=== PATIENT | female | born 1985 | race Caucasian/White ===

== ENCOUNTER 2016-03-17 11:58 | Emergency (ER) | payer OTHER ==
[~2016-03-17] VITALS: Wt 92.0 kg
[~2016-03-17 11:58] MED LIST: AMO500 PO; DEPO-PROVERA IM; IBUP-725; MED4DP PO; NAPR-260 PO; PRED50TA PO
[2016-03-17] MEDS ORDERED: IPRATROPIUM (NEB) 0.5 MG/2.5 ML AMP NEB STA (13:56)
[2016-03-17] MEDS ORDERED: ALBUTEROL 0.5% (NEB) 2.5 MG/0.5 ML AMP NEB STA (13:56)
--- NOTE | 2016-03-17 14:29 | RADRPT ---
PROCEDURE: XR Chest. CLINICAL INDICATION: chest pain, cough TECHNIQUE: Single frontal view of the chest was obtained COMPARISON: None FINDINGS: The heart and mediastinum are within normal limits. The lungs are clear. There is no pleural effusion or pneumothorax. RPTAT: AA IMPRESSION: No acute disease. .Michele Polanco MD, MD Date Time Electronically viewed and signed by .Michele Polanco MD, on 03/17/2016 14:28 .S/
[2016-03-17] MEDS ORDERED: BENZ100C70 PO (15:23)
[2016-03-17] MEDS ORDERED: ALBU8.5H3 INH (15:23)
--- NOTE | 2016-03-17 17:52 | ERD ---
ER Documentation Chief Complaint Date/Time DATE: 03/17/16 TIME: 17:49 Chief Complaint COUGH, CONGESTION, FEVER AT HOME HPI 31-year-old female with a past medical history of asthma presents the ED complaining of a cough that started 2 weeks ago. States that she started to have a productive cough yesterday. Reports that her left ear hurt. States that she has body aches. States that she's been taking Tylenol, Advil, Robitussin with slight relief. States that she feels congested and slightly short of breath. Denies any fever, chills, chest pain, pleuritic chest pain, dyspnea on exertion, abdominal pain, nausea, vomiting. ROS All systems reviewed and are negative except as per history of present illness. Medications Home Meds Active Scripts Albuterol Sulfate* (Proair HFA*) 8.5 Gm Hfa.aer.ad, 2 PUFF INH Q4, #1 INHALER Prov:JANNETTE HONG PA-C 03/17/16 Benzonatate* (Tessalon Perle*) 100 Mg Capsule, 100 MG PO Q8H Y for COUGH, #20 CAP Prov:JANNETTE HONG PA-C 03/17/16 Methylprednisolone* (Medrol* DOSE PACK) 4 Mg/Dose-Pack Tab.ds.pk, 4 MG PO . DIRECTED, #1 PACKET Prov:ROSE BALL PA-C 04/10/15 Naproxen* (Naprosyn*) 500 Mg Tablet, 500 MG PO BID Y for PAIN AND/OR INFLAMMATION, #30 TAB Prov:ROSE BALL PA-C 04/10/15 Prednisone* (Prednisone*) 50 Mg Tablet, 50 MG PO DAILY, #5 TAB Prov:NICANOR CHAIDEZ PA-C 02/22/15 Amoxicillin* (Amoxicillin*) 500 Mg Cap, 500 MG PO BID for 7 Days, CAP Prov:NICANOR CHAIDEZ PA-C 02/22/15 Reported Medications [Depo-Provera] No Conflict Check, IM Q3 MONTHS 08/10/12 Ibuprofen (Motrin) 400 Mg Tablet 05/08/11 [None] No Conflict Check 04/20/09 Allergies Allergies: Coded Allergies: No Known Allergies (Verified Allergy, Mild, 04/10/15) PMhx/Soc History of Surgery: No Anesthesia Reaction: No Hx Neurological Disorder: No Hx Respiratory Disorders: No Hx Cardiac Disorders: No Hx Psychiatric Problems: No Hx Miscellaneous Medical Probl: No Hx Alcohol Use: No Hx Substance Use: No Hx Tobacco Use: No Smoking Status: Never smoker Physical Exam Vitals Vital Signs Date Time Temp Pulse Resp B/P Pulse Ox O2 Delivery O2 Flow Rate FiO2 03/17/16 14:18 64 18 97 21 03/17/16 12:11 97.6 69 17 121/68 99 Physical Exam Const: Top-goy-skvciukhs, well-nourished. In no acute distress. Head: Atraumatic, normocephalic Eyes: Normal Conjunctiva without injection. No purulent discharge. PERRL. EOMI ENT: Normal external ear. Ear canal without erythema. Tympanic membrane pearly negro without effusion or bulging. Nasal canal clear with normal turbinates. Moist oropharynx without tonsillar exudates. Non-erythematous pharynx. Uvula midline. No drooling. No trismus. Neck: Full range of motion. No meningismus. No cervical lymphadenopathy. Resp: Clear to auscultation bilaterally. No wheezing, rhonchi, rales, or crackles. No accessory muscle use. No retractions. Cardio: Regular rate and rhythm. No murmurs, rubs or gallops. Abd: Soft, non tender, non distended. Normal bowel sounds. No palpable masses. No rebound tenderness. No guarding. Skin: No petechiae or rashes Back: No midline tenderness. No CVA tenderness. Ext: No cyanosis, or edema. Neur: Awake and alert. Psych: Normal Mood and Affect Results 24 hrs Current Medications Medications (Trade) Dose Ordered Sig/Marvel Route PRN Reason Start Time Stop Time Status Last Admin Dose Admin Albuterol (Proventil 0.5% (Neb)) 10 mg ONCE STAT NEB 03/17/16 13:56 03/17/16 13:58 DC 03/17/16 14:13 Ipratropium [place] (Atrovent 0.02% (Neb)) 1 mg ONCE STAT NEB 03/17/16 13:56 03/17/16 13:58 DC 03/17/16 14:14 Procedures/MDM This is a 31-year-old female with no significant past medical history presents the ED complaining of cough for the last 2 weeks. Patient is afebrile and nontoxic-appearing. Patient was giving a breathing treatment consisting of albuterol 10 mg, 1 mg Atrovent with improvement of her shortness of breath. There is no wheezing noted. No indication for steroids at this time. A chest x- ray was ordered to further evaluate patient. PROCEDURE: XR Chest. CLINICAL INDICATION: chest pain, cough TECHNIQUE: Single frontal view of the chest was obtained COMPARISON: None FINDINGS: The heart and mediastinum are within normal limits. The lungs are clear. There is no pleural effusion or pneumothorax. RPTAT: AA IMPRESSION: No acute disease. This patient presents to the ED with symptoms consistent with a viral acute upper respiratory infection. Patient is afebrile and has normal vital signs. Patient's physical exam include lungs which were clear to auscultation and a normal pulse oximetry. There is a low suspicion for pneumonia, pneumothorax, pulmonary embolism, epiglottitis, otitis media, otitis externa, viral/strep pharyngitis, sinusitis, peritonsillar abscess, mastoiditis, retropharyngeal abscess, meningitis, sepsis, acute abdomen or other emergent conditions. Fluids , rest, and symptomatic treatment are recommended for the management of patient' s symptoms. Discharge medications: Pro-air, Tessalon Perles Patient was instructed to return to the ED for any new or worsening symptoms. They should otherwise follow up with the primary care provider within 1-2 days. The patient's questions were answered at the time of discharge. Patient understood and agreed with discharge management. Departure Diagnosis: Primary Impression: Upper respiratory infection Condition: Stable Patient Instructions: Asthma, Acute (Adult), Uri, Viral, No Abx (Adult) Referrals: [facility] YOU HAVE RECEIVED A MEDICAL SCREENING EXAM AND THE RESULTS INDICATE THAT YOU DO NOT HAVE A CONDITION THAT REQUIRES URGENT TREATMENT IN THE EMERGENCY DEPARTMENT. FURTHER EVALUATION AND TREATMENT OF YOUR CONDITION CAN WAIT UNTIL YOU ARE SEEN IN YOUR DOCTORS OFFICE WITHIN THE NEXT 1-2 DAYS. IT IS YOUR RESPONSIBILITY TO MAKE AN APPOINTMENT FOR FOLOW-UP CARE. IF YOU HAVE A PRIMARY DOCTOR --you should call your primary doctor and schedule an appointment IF YOU DO NOT HAVE A PRIMARY DOCTOR YOU CAN CALL OUR PHYSICIAN REFERRAL HOTLINE AT IF YOU CAN NOT AFFORD TO SEE A PHYSICIAN YOU CAN CHOSE FROM THE FOLLOWING [facility] [address] [facility]. [facility] [address] [email or web address] [address] [facility] [address] [facility] [address] [facility]. [facility] [address] [facility]. [facility] YOU HAVE RECEIVED A MEDICAL SCREENING EXAM AND THE RESULTS INDICATE THAT YOU DO NOT HAVE A CONDITION THAT REQUIRES URGENT TREATMENT IN THE EMERGENCY DEPARTMENT. FURTHER EVALUATION AND TREATMENT OF YOUR CONDITION CAN WAIT UNTIL YOU ARE SEEN IN YOUR DOCTORS OFFICE WITHIN THE NEXT 1-2 DAYS. IT IS YOUR RESPONSIBILITY TO MAKE AN APPOINTMENT FOR FOLOW-UP CARE. IF YOU HAVE A PRIMARY DOCTOR --you should call your primary doctor and schedule and appointment IF YOU DO NOT HAVE A PRIMARY DOCTOR YOU CAN CALL OUR PHYSICIAN REFERRAL HOTLINE AT . IF YOU CAN NOT AFFORD TO SEE A PHYSICIAN YOU CAN CHOSE FROM THE FOLLOWING [facility]: [facility] [address] [place] [address] [facility] [address] [place] [address] [facility] [address] [place] [address] [facility] Additional Instructions: FOLLOW UP WITH YOUR PRIMARY CARE PHYSICIAN TOMORROW. Return to this facility if you are not improving as expected. JANNETTE HONG PA-C Mar 17, 2016 17:52
== END 2016-03-17 15:44 | disposition home or self-care (01) ==
LOC: FTE 11:58
DX: J06.9 Acute upper respiratory infection, unspecified (principal)
CPT/HCPCS: 71010; 94644; Z7502; Z7610

== ENCOUNTER 2016-06-13 18:10 | Emergency (ER) | payer OTHER ==
[~2016-06-13] VITALS: Ht 160 cm; Wt 89.0 kg
[~2016-06-13 18:10] MED LIST changes: +ALBU8.5H3 INH; +BENZ100C70 PO
[2016-06-13 18:12] VITALS: Ht 160 cm; Wt 89.0 kg
[2016-06-13] MEDS ORDERED: ONDANSETRON 4 MG INJ IM STA (19:42)
[2016-06-13] MEDS ORDERED: LORA-441 PO (19:43)
[2016-06-13] MEDS ORDERED: LORAZEPAM 0.5 MG TAB PO ONE (20:00)
--- NOTE | 2016-06-13 20:28 | ERD ---
ER Documentation Chief Complaint Date/Time DATE: 06/13/16 TIME: 20:26 Chief Complaint vomiting,feeling dizzy,light headed, onset last night, feels anxious HPI 31-year-old woman with multiple complaints including dizziness paresthesias to the hands and feet, feeling dizzy and lightheaded with nausea. Symptoms have been intermittent for 2 days, she states she has had multiple similar episodes in the past and has a history of anxiety although is not using any medications for her symptoms. She denies drug abuse. She denies depression, suicidal or homicidal ideation. She denies fevers or chills, no chest pain, no shortness of breath, no vomiting or diarrhea. ROS All systems reviewed and are negative except as per history of present illness. Medications Home Meds Active Scripts Lorazepam* (Ativan*) 0.5 Mg Tablet, 0.5 MG PO Q8H Y for ANXIETY, #12 TAB Prov:WOLFGANG WOODRUFF MD 06/13/16 Albuterol Sulfate* (Proair HFA*) 8.5 Gm Hfa.aer.ad, 2 PUFF INH Q4, #1 INHALER Prov:JANNETTE HONG PA-C 03/17/16 Benzonatate* (Tessalon Perle*) 100 Mg Capsule, 100 MG PO Q8H Y for COUGH, #20 CAP Prov:JANNETTE HONG PA-C 03/17/16 Methylprednisolone* (Medrol* DOSE PACK) 4 Mg/Dose-Pack Tab.ds.pk, 4 MG PO . DIRECTED, #1 PACKET Prov:ROSE BALL PA-C 04/10/15 Naproxen* (Naprosyn*) 500 Mg Tablet, 500 MG PO BID Y for PAIN AND/OR INFLAMMATION, #30 TAB Prov:ROSE BALL PA-C 04/10/15 Prednisone* (Prednisone*) 50 Mg Tablet, 50 MG PO DAILY, #5 TAB Prov:NICANOR CHAIDEZ PA-C 02/22/15 Amoxicillin* (Amoxicillin*) 500 Mg Cap, 500 MG PO BID for 7 Days, CAP Prov:NICANOR CHAIDEZ PA-C 02/22/15 Reported Medications [Depo-Provera] No Conflict Check, IM Q3 MONTHS 08/10/12 Ibuprofen (Motrin) 400 Mg Tablet 05/08/11 [None] No Conflict Check 04/20/09 Allergies Allergies: Coded Allergies: No Known Allergies (Verified Allergy, Mild, 06/13/16) PMhx/Soc Anxiety History of Surgery: No Anesthesia Reaction: No Hx Neurological Disorder: No Hx Respiratory Disorders: No Hx Cardiac Disorders: No Hx Psychiatric Problems: No Hx Miscellaneous Medical Probl: No Hx Alcohol Use: No Hx Substance Use: No Hx Tobacco Use: No Smoking Status: Never smoker FmHx Family History: No diabetes Physical Exam Vitals Vital Signs Date Time Temp Pulse Resp B/P Pulse Ox O2 Delivery O2 Flow Rate FiO2 06/13/16 18:12 97.9 87 20 128/78 99 Physical Exam GENERAL: Well-developed, well-nourished, anxious HEENT: Moist mucous membranes, pink conjunctiva, no cervical spine tenderness or step-off deformities, no goiter, no jaundice or icterus, extraocular movements intact without pain. No submandibular induration, and no pharyngeal erythema NEURO: Alert and oriented 3, cranial nerves II through XII intact bilaterally, pupils equal round reactive to light, no focal deficits or facial asymmetry, sensation intact distally Strength 5/5 in upper and lower extremities bilaterally CARDIAC: Regular rate and rhythm, no murmurs rubs or gallops LUNGS: Clear bilaterally no wheezing crackles or stridor ABDOMEN: Soft nontender, no guarding, no rigidity, no rebound, no psoas sign no obturator sign. Normoactive bowel sounds SKIN: Warm and dry to touch, no abrasions, contusions, or hematomas, no lacerations, no ecchymosis, no target lesions, and without ulcers EXTREMITIES: No clubbing cyanosis or edema, calves are bilaterally symmetrical, no Homans sign, no popliteal cord sign. Distal pulses equal and bilateral PSYCH: Anxious Results 24 hrs Current Medications Medications (Trade) Dose Ordered Sig/Marvel Route PRN Reason Start Time Stop Time Status Last Admin Dose Admin Ondansetron HCl (Zofran Inj) 4 mg ONCE STAT IM 06/13/16 19:42 06/13/16 19:43 DC 06/13/16 19:55 Lorazepam (Ativan) 0.5 mg ONCE ONCE PO 06/13/16 20:00 06/13/16 20:01 DC 06/13/16 19:54 Procedures/MDM Patient did have nausea here in the ER but no episodes of vomiting I administered Zofran 4 mg intramuscular injection and for anxiety administer lorazepam 0.5 mg p.o. with good effect. Reassurance was provided to the patient, her vital signs are normal and she can be managed as an outpatient. Differential diagnoses considered, included but not limited to acute coronary syndrome, pulmonary embolism, aortic dissection, abdominal aortic aneurysm, sepsis, stroke, meningitis, encephalitis, pneumonia, appendicitis, cholecystitis , bowel obstruction, pyelonephritis, nephrolithiasis, cystitis, as well as metabolic, hematologic, and electrolyte abnormalities. As well as abscess, cellulitis, fractures, and dislocations. Patient feels much better at this time, and vital signs are normal, symptoms have improved. I did give strict instructions to return to the ED if symptoms continue or worsen, patient will otherwise follow-up with primary care physician. Patient understood instructions and agreed to plan. Departure Diagnosis: Primary Impression: Anxiety attack Condition: Good Patient Instructions: Anxiety Reaction Referrals: SOFYA DO MD (PCP) WOLFGANG WOODRUFF MD Jun 13, 2016 20:28
== END 2016-06-13 20:08 | disposition home or self-care (01) ==
LOC: FTE 18:10
DX: F41.9 Anxiety disorder, unspecified (principal); R11.0 Nausea
CPT/HCPCS: 96372; J2405; Z7502; Z7610

== ENCOUNTER 2016-07-03 05:09 | Emergency (ER) | payer OTHER ==
[~2016-07-03] VITALS: Ht 162.6 cm; Wt 94.0 kg
[~2016-07-03 05:09] MED LIST changes: +LORA-441 PO
[2016-07-03 05:12] VITALS: Ht 162.6 cm; Wt 94.0 kg
[2016-07-03] MEDS ORDERED: LORA1TAB PO (06:51)
--- NOTE | 2016-07-03 06:56 | ERD ---
ER Documentation Chief Complaint Date/Time DATE: 07/03/16 TIME: 06:53 Chief Complaint anxiety, run out of ativan since 2 days ago HPI 31-year-old female who presents the emergency room with anxiety. The patient states that she recently ran out of Ativan that is usually prescribed in the emergency department. The patient describes anxiety that is chronic, unchanged. She occasionally has depressions and has occasionally in the past thought of suicide but does not have suicidal ideation currently. Patient states that she is just overwhelmed by her job. The patient denies any drug or alcohol abuse. No fevers or chills chest pain or shortness of breath. She is asking for refill of Ativan. ROS All systems reviewed and are negative except as per history of present illness. Medications Home Meds Active Scripts Lorazepam* (Lorazepam*) 1 Mg Tablet, 1 MG PO Q8H Y for ANXIETY, #8 TAB Prov:ARGELIA TOPETE MD 07/03/16 Lorazepam* (Ativan*) 0.5 Mg Tablet, 0.5 MG PO Q8H Y for ANXIETY, #12 TAB Prov:WOLFGANG WOODRUFF MD 06/13/16 Albuterol Sulfate* (Proair HFA*) 8.5 Gm Hfa.aer.ad, 2 PUFF INH Q4, #1 INHALER Prov:JANNETTE HONG PA-C 03/17/16 Benzonatate* (Tessalon Perle*) 100 Mg Capsule, 100 MG PO Q8H Y for COUGH, #20 CAP Prov:JANNETTE HONG PA-C 03/17/16 Methylprednisolone* (Medrol* DOSE PACK) 4 Mg/Dose-Pack Tab.ds.pk, 4 MG PO . DIRECTED, #1 PACKET Prov:ROSE BALL PA-C 04/10/15 Naproxen* (Naprosyn*) 500 Mg Tablet, 500 MG PO BID Y for PAIN AND/OR INFLAMMATION, #30 TAB Prov:ROSE BALL PA-C 04/10/15 Prednisone* (Prednisone*) 50 Mg Tablet, 50 MG PO DAILY, #5 TAB Prov:NICANOR CHAIDEZ PA-C 02/22/15 Amoxicillin* (Amoxicillin*) 500 Mg Cap, 500 MG PO BID for 7 Days, CAP Prov:NICANOR CHAIDEZ PA-C 02/22/15 Reported Medications [Depo-Provera] No Conflict Check, IM Q3 MONTHS 08/10/12 Ibuprofen (Motrin) 400 Mg Tablet 05/08/11 [None] No Conflict Check 04/20/09 Allergies Allergies: Coded Allergies: No Known Allergies (Verified Allergy, Mild, 06/13/16) PMhx/Soc Medical and Surgical Hx: pt denies Medical Hx History of Surgery: No Anesthesia Reaction: No Hx Neurological Disorder: No Hx Respiratory Disorders: No Hx Cardiac Disorders: No Hx Psychiatric Problems: No Hx Miscellaneous Medical Probl: No Hx Alcohol Use: No Hx Substance Use: No Hx Tobacco Use: No FmHx Family History: No diabetes Physical Exam Vitals Vital Signs Date Time Temp Pulse Resp B/P Pulse Ox O2 Delivery O2 Flow Rate FiO2 07/03/16 05:12 98.3 66 20 110/59 100 Physical Exam General: Well developed, well nourished, no acute distress Head: Normocephalic, atraumatic. Eyes: EOM intact ENT: Moist mucous membranes Neck: Full ROM Respiratory: No respiratory distress Cardiovascular: Good capillary refil Abdominal: Nondistended : Deferred MSK: No edema, no unilateral swelling, 5/5 strength Neurologic: Alert and oriented, moving all extremities, normal speech, steady gait Skin: No rash Psych: Anxious, slightly depressed mood, no suicidal ideation Procedures/MDM The patient exhibits signs and symptoms consistent with generalized anxiety disorder versus early major depressive disorder. The patient has expressed suicidal thoughts in the past but does not actively have suicidal thoughts. We had this conversation for period of time and the patient is not actively suicidal. The patient does not have weapons at home and has not tried to hurt herself in the past. She does not use drugs or alcohol. I offered a psychiatry evaluation here in the emergency room with the patient refused. I discussed that she needs to see a psychiatrist and that benzodiazepines are not the only answer for her anxiety and likely depression. The patient needs to see a psychiatrist. I have provided the patient with referral information to psychiatrist. The patient also has a primary care physician. I advised following up with primary care physician within 1 week for referral to psychiatrist. She was also offered return to the emergency room for any suicidal thoughts. The patient verbalizes understanding. At this time, my opinion the patient is not a danger to herself or others. The patient can be safely discharged home with a small prescription for Ativan. We discussed follow up with the patient's primary care doctor within 24 to 48 hours as needed. We also discussed return to the emergency room for worsening symptoms or worsening condition. Outpatient referral: Psychiatry Discharge Medications: Ativan 1 mg a total of 8 tablets Departure Diagnosis: Primary Impression: Anxiety disorder Anxiety disorder type: generalized anxiety disorder Qualified Code: F41.1 - Generalized anxiety disorder Condition: Stable Patient Instructions: Anxiety Reaction Additional Instructions: Call your primary care doctor TOMORROW for an appointment during the next 1 WEEK.Tell the attendance secretary that you were referred from this facility.See the doctor sooner or return here if your condition worsens before your appointment time. You need to be referred to a psychiatrist by your PMD. Return for any suicidal thoughts. ARGELIA TOPETE MD Jul 03, 2016 06:56
== END 2016-07-03 07:23 | disposition home or self-care (01) ==
LOC: FTE 05:09
DX: F41.1 Generalized anxiety disorder (principal)
CPT/HCPCS: 99283

== ENCOUNTER 2016-07-26 14:55 | Emergency (ER) | payer OTHER ==
[~2016-07-26] VITALS: Ht 167.6 cm; Wt 95.5 kg
[~2016-07-26 14:55] MED LIST changes: +LORA1TAB PO
[2016-07-26 14:57] VITALS: Ht 167.6 cm; Wt 95.5 kg
[2016-07-26] MEDS ORDERED: ACETAMINOPHEN 325 MG TAB PO STA (15:53)
[2016-07-26] MEDS ORDERED: SOD CHLORIDE 0.9% 1,000 ML IV STA (15:53)
--- NOTE | 2016-07-26 16:23 | RADRPT ---
PROCEDURE: US OB. CLINICAL INDICATION: Vaginal bleeding. TECHNIQUE: Transabdominal and transvaginal imaging of the uterus was performed. COMPARISON: None. FINDINGS: A single intrauterine is present with identification of a gestational sac, pole, and yolk sac. [place] rump length measures 3.7 cm, corresponding to a gestational age of 10 weeks 4 days. Real time examination shows cardiac activity. The heart rate is 163 beats per minute. Right ovary is not well visualized. There is a 3.2 cm left ovarian cyst. IMPRESSION: 1. Single viable intrauterine gestation of approximately 10 weeks 4 days. 2. Examination is within normal limits. RPTAT: EE .Erasmo Dominguez MD, MD Date Time Electronically viewed and signed by .Erasmo Dominguez MD, on 07/26/2016 16:27 .C/
[2016-07-26 16:39] LABS: ADD UMIC YES; URINE BILIRUBIN (Dip) NEGATIVE (NEGATIVE); URINE BLOOD (Dip) NEGATIVE (NEGATIVE); URINE COLOR YELLOW (YELLOW); URINE GLUCOSE (Dip) NEGATIVE (NEGATIVE); URINE KETONES (Dip) NEGATIVE (NEGATIVE); URINE LEUKOCYTE ESTERASE (Dip) 1+ (NEGATIVE); URINE NITRITE (Dip) NEGATIVE (NEGATIVE); URINE TOTAL PROTEIN (Dip) NEGATIVE (NEGATIVE); URINE UROBILINOGEN (Dip) 1.0 E.U./dL (0.1-1.0)
[2016-07-26 16:40] LABS: ADD SCAN DIFF NO
[2016-07-26 16:45] LABS: BASOPHILS % 0.2 % (0.0-2.0); EOSINOPHILS # 0.1 10^3/ul (0.0-0.5); EOSINOPHILS % 1.6 % (0.0-7.0); HEMATOCRIT 40.9 % (37.0-47.0); HEMOGLOBIN 13.5 g/dl (12.0-16.0); LYMPHOCYTES # 1.6 10^3/ul (0.8-2.9); LYMPHOCYTES % 18.1 % (15.0-51.0); MEAN CORPUSCULAR HEMOGLOBIN 29.3 pg (29.0-33.0); MEAN CORPUSCULAR VOLUME 88.9 fl (82.0-101.0); MEAN PLATELET VOLUME 10.3 fl (7.4-10.4); MONOCYTE # 0.7 10^3/ul (0.3-0.9); MONOCYTES % 7.2 % (0.0-11.0); NEUTROPHIL # 6.5 10^3/ul (1.6-7.5); NEUTROPHILS % 72.6 % (39.0-77.0); PLATELET COUNT 273 10^3/UL (140-415); RED CELL DISTRIBUTION WIDTH 13.5 % (11.5-14.5)
[2016-07-26 16:56] LABS: BACTERIA,URINE FEW; SQUAMOUS EPITHELIAL CELL,UR FEW; URINE RBCS NONE SEEN /HPF (0)
[2016-07-26 17:04] LABS: ALBUMIN 4.1 g/dl (3.3-4.9)
[2016-07-26 17:05] LABS: POTASSIUM 3.4 mmol/L (3.5-5.1)
[2016-07-26 17:07] LABS: ALBUMIN/GLOBULIN RATIO 1.2; BILIRUBIN,INDIRECT 0.1 mg/dl (0-1.1); BILIRUBIN,TOTAL 0.1 mg/dl (0.2-1.3); CREATININE 0.58 mg/dl (0.44-1.00); TOTAL PROTEIN 7.5 g/dl (6.1-8.1)
[2016-07-26 17:08] LABS: CALCIUM 8.8 mg/dl (8.4-10.2)
[2016-07-26] MEDS ORDERED: POTASSIUM CHLORIDE (SR) 20 MEQ TAB PO STA (17:16)
[2016-07-26] MEDS ORDERED: NITR-58 PO (17:22)
[2016-07-26] MEDS ORDERED: NITROFURANTOIN (SR) 100 MG CAP PO ONE (17:30)
[2016-07-26 17:55] VITALS: BP 114/75; PULSE 65; RESP 16
--- NOTE | 2016-07-27 00:34 | ERD ---
ER Documentation Chief Complaint Date/Time DATE: 07/27/16 TIME: 00:27 Chief Complaint painful urination , blood in urine x 3days , 12 weeks preg HPI 31-year-old woman about 12 weeks by dates presents with dysuria 2-3 days. She has had some hematuria as well and back pain, no vaginal discharge, no vaginal bleeding, no fevers or chills, no weight loss, no chest pain or shortness of breath. ROS All systems reviewed and are negative except as per history of present illness. Medications Home Meds Active Scripts Nitrofurantoin Monohyd Macrocr (Macrobid) 100 Mg Capsr, 100 MG PO BID, #14 CAP Prov:WOLFGANG WOODRUFF MD 07/26/16 Lorazepam* (Lorazepam*) 1 Mg Tablet, 1 MG PO Q8H Y for ANXIETY, #8 TAB Prov:ARGELIA TOPETE MD 07/03/16 Lorazepam* (Ativan*) 0.5 Mg Tablet, 0.5 MG PO Q8H Y for ANXIETY, #12 TAB Prov:WOLFGANG WOODRUFF MD 06/13/16 Albuterol Sulfate* (Proair HFA*) 8.5 Gm Hfa.aer.ad, 2 PUFF INH Q4, #1 INHALER Prov:JANNETTE HONG PA-C 03/17/16 Benzonatate* (Tessalon Perle*) 100 Mg Capsule, 100 MG PO Q8H Y for COUGH, #20 CAP Prov:JANNETTE HONG PA-C 03/17/16 Methylprednisolone* (Medrol* DOSE PACK) 4 Mg/Dose-Pack Tab.ds.pk, 4 MG PO . DIRECTED, #1 PACKET Prov:ROSE BALL PA-C 04/10/15 Naproxen* (Naprosyn*) 500 Mg Tablet, 500 MG PO BID Y for PAIN AND/OR INFLAMMATION, #30 TAB Prov:ROSE BALL PA-C 04/10/15 Prednisone* (Prednisone*) 50 Mg Tablet, 50 MG PO DAILY, #5 TAB Prov:NICANOR CHAIDEZ PA-C 02/22/15 Amoxicillin* (Amoxicillin*) 500 Mg Cap, 500 MG PO BID for 7 Days, CAP Prov:NICANOR CHAIDEZ PA-C 12/10/15 Reported Medications [Depo-Provera] No Conflict Check, IM Q3 MONTHS 08/10/12 Ibuprofen (Motrin) 400 Mg Tablet 05/08/11 [None] No Conflict Check 04/20/09 Allergies Allergies: Coded Allergies: No Known Allergies (Verified Allergy, Mild, 06/13/16) PMhx/Soc None Medical and Surgical Hx: pt denies Medical Hx, pt denies Surgical Hx History of Surgery: No Anesthesia Reaction: No Hx Neurological Disorder: No Hx Respiratory Disorders: No Hx Cardiac Disorders: No Hx Psychiatric Problems: No Hx Miscellaneous Medical Probl: Yes (ANXIETY ) Hx Alcohol Use: No Hx Substance Use: No Hx Tobacco Use: No Smoking Status: Never smoker FmHx Family History: No diabetes Physical Exam Vitals Vital Signs Date Time Temp Pulse Resp B/P Pulse Ox O2 Delivery O2 Flow Rate FiO2 07/26/16 17:55 65 16 114/75 100 Room Air 07/26/16 14:57 98.4 69 18 124/81 100 Physical Exam GENERAL: Well-developed, well-nourished, well-hydrated, in no apparent distress , looks nontoxic in appearance HEENT: Moist mucous membranes, pink conjunctiva, no cervical spine tenderness or step-off deformities, no goiter, no jaundice or icterus, extraocular movements intact without pain. No submandibular induration, and no pharyngeal erythema NEURO: Alert and oriented 3, cranial nerves II through XII intact bilaterally, pupils equal round reactive to light, no focal deficits or facial asymmetry, sensation intact distally Strength 5/5 in upper and lower extremities bilaterally CARDIAC: Regular rate and rhythm, no murmurs rubs or gallops LUNGS: Clear bilaterally no wheezing crackles or stridor ABDOMEN: Soft nontender, no guarding, no rigidity, no rebound, no psoas sign no obturator sign. Normoactive bowel sounds SKIN: Warm and dry to touch, no abrasions, contusions, or hematomas, no lacerations, no ecchymosis, no target lesions, and without ulcers EXTREMITIES: No clubbing cyanosis or edema, calves are bilaterally symmetrical, no Homans sign, no popliteal cord sign. Distal pulses equal and bilateral PSYCH: Normal affect without agitation or irritability Result Diagram: 07/26/16 1600 07/26/16 1600 Results 24 hrs Laboratory Tests Test 07/26/16 16:00 07/26/16 16:19 White Blood Count 9.010^3/ul Red Blood Count 4.6010^6/ul Hemoglobin 13.5g/dl Hematocrit 40.9% Mean Corpuscular Volume 88.9fl Mean Corpuscular Hemoglobin 29.3pg Mean Corpuscular Hemoglobin Concent 33.0g/dl Red Cell Distribution Width 13.5% Platelet Count 52940^3/UL Mean Platelet Volume 10.3fl Neutrophils % 72.6% Lymphocytes % 18.1% Monocytes % 7.2% Eosinophils % 1.6% Basophils % 0.2% Nucleated Red Blood Cells % 0.0/100WBC Neutrophils # 6.510^3/ul Lymphocytes # 1.610^3/ul Monocytes # 0.710^3/ul Eosinophils # 0.110^3/ul Basophils # 0.010^3/ul Nucleated Red Blood Cells # 0.010^3/ul Sodium Level 138mmol/L Potassium Level 3.4mmol/L Chloride Level 99mmol/L Carbon Dioxide Level 27mmol/L Anion Gap 15 Blood Urea Nitrogen 7mg/dl Creatinine 0.58mg/dl Glucose Level 52mg/dl Calcium Level 8.8mg/dl Total Bilirubin 0.1mg/dl Direct Bilirubin 0.00mg/dl Indirect Bilirubin 0.1mg/dl Aspartate Amino Transf (AST/SGOT) 16IU/L Alanine Aminotransferase (ALT/SGPT) 25IU/L Alkaline Phosphatase 61IU/L Total Protein 7.5g/dl Albumin 4.1g/dl Globulin 3.40g/dl Albumin/Globulin Ratio 1.20 Beta HCG, Quantitative 63664.0mIU/ml Urine Color YELLOW Urine Clarity CLEAR Urine pH 6.0 Urine Specific [place] 1.020 Urine Ketones NEGATIVE Urine Nitrite NEGATIVE Urine Bilirubin NEGATIVE Urine Urobilinogen 1.0 E.U./dL Urine Leukocyte Esterase 1+ Urine Microscopic RBC NONE SEEN/HPF Urine Microscopic WBC 5-10/HPF Urine Squamous Epithelial Cells FEW Urine Bacteria FEW Urine Hemoglobin NEGATIVE Urine Glucose NEGATIVE% Urine Total Protein NEGATIVE Current Medications Medications (Trade) Dose Ordered Sig/Marvel Route PRN Reason Start Time Stop Time Status Last Admin Dose Admin Sodium Chloride (NS) 1,000 ml @ 1,000 mls/hr Q1H STAT IV 07/26/16 15:53 07/26/16 16:52 DC 07/26/16 16:26 Acetaminophen (Tylenol Tab) 650 mg ONCE STAT PO 07/26/16 15:53 07/26/16 15:55 DC 07/26/16 16:27 Nitrofurantoin Macrocrystals (Macrobid) 100 mg ONCE ONCE PO 07/26/16 17:30 07/26/16 17:31 DC 07/26/16 17:34 Potassium Chloride (Klor-Con 20) 40 meq ONCE STAT PO 07/26/16 17:16 07/26/16 17:17 DC 07/26/16 17:34 Procedures/MDM IV line was established patient was placed on cardiac monitor technician rhythm strip revealed a sinus rhythm at about 80 bpm with upright P and T waves. Patient was afebrile. Obstetric ultrasound was performed revealing a normal intrauterine at about 12 weeks. Please refer to radiologist dictation for full report. I administered 1 L normal saline intravenously and acetaminophen 650 mg p.o. CBC was unremarkable, electrolytes revealed hypokalemia 3.4, liver function tests were normal. Beta-hCG elevated at about 55,000. I administered oral potassium supplementation of 40 mEq p.o. Patient tolerated it well. Urine analysis was positive for infection I treated her here with nitrofurantoin 100 mg p.o. Both verbal and written recommendations were provided to the patient for follow- up and continued outpatient obstetric evaluation and management. Differential diagnoses considered, included but not limited to cervicitis, ovarian torsion, ectopic , missed , appendicitis, cholecystitis , bowel obstruction, pyelonephritis, nephrolithiasis, cystitis, as well as metabolic, hematologic, and electrolyte abnormalities. As well as abscess, cellulitis, fractures, and dislocations. Patient feels much better at this time, and vital signs are normal, symptoms have improved. I did give strict instructions to return to the ED if symptoms continue or worsen, patient will otherwise follow-up with primary care physician. Patient understood instructions and agreed to plan. Departure Diagnosis: Primary Impression: Threatened Additional Impressions: UTI (urinary tract infection) Urinary tract infection type: acute cystitis Hematuria presence: with hematuria Qualified Code: N30.01 - Acute cystitis with hematuria Acute hypokalemia Condition: Good Patient Instructions: Possible Miscarriage (Threatened ), Bladder Infection, Female (Adult) WOLFGANG WOODRUFF MD July 27, 2016 00:34
== END 2016-07-26 18:03 | disposition home or self-care (01) ==
LOC: FTE 14:55
DX: O20.0 Threatened abortion (principal); O23.11 Infections of bladder in pregnancy, first trimester; E87.6 Hypokalemia; O99.281 Endocrine, nutritional and metabolic diseases complicating pregnancy, first trimester; R30.0 Dysuria; Z3A.10 10 weeks gestation of pregnancy
CPT/HCPCS: 36415; 76801; 80053; 81001; 84702; 85025; 86900; 86901; 87086; 96360; J7030; Z7502; Z7610; 81003

== ENCOUNTER 2016-08-21 19:15 | Emergency (ER) | payer OTHER ==
[~2016-08-21] VITALS: Ht 167.6 cm; Wt 99.5 kg
[~2016-08-21 19:15] MED LIST changes: +NITR-58 PO
[2016-08-21 19:31] VITALS: Ht 167.6 cm; Wt 99.5 kg
[2016-08-21 20:50] LABS: ADD SCAN DIFF NO
[2016-08-21 20:51] LABS: BASOPHILS % 0.4 % (0.0-2.0); EOSINOPHILS # 0.1 10^3/ul (0.0-0.5); EOSINOPHILS % 1.4 % (0.0-7.0); HEMATOCRIT 37.2 % (37.0-47.0); HEMOGLOBIN 12.6 g/dl (12.0-16.0); LYMPHOCYTES # 2.7 10^3/ul (0.8-2.9); LYMPHOCYTES % 28.8 % (15.0-51.0); MEAN CORPUSCULAR HEMOGLOBIN 29.7 pg (29.0-33.0); MEAN CORPUSCULAR HGB CONC 33.9 g/dl (32.0-37.0); MEAN CORPUSCULAR VOLUME 87.7 fl (82.0-101.0); MEAN PLATELET VOLUME 10.2 fl (7.4-10.4); MONOCYTE # 0.6 10^3/ul (0.3-0.9); MONOCYTES % 6.5 % (0.0-11.0); NEUTROPHIL # 5.8 10^3/ul (1.6-7.5); NEUTROPHILS % 62.5 % (39.0-77.0); PLATELET COUNT 258 10^3/UL (140-415); RED BLOOD COUNT 4.24 10^6/ul (4.20-5.40); RED CELL DISTRIBUTION WIDTH 13.9 % (11.5-14.5); WHITE BLOOD COUNT 9.2 10^3/ul (4.8-10.8)
[2016-08-21 21:12] LABS: ADD UMIC NO; URINE BILIRUBIN (Dip) NEGATIVE (NEGATIVE); URINE BLOOD (Dip) NEGATIVE (NEGATIVE); URINE COLOR LT. YELLOW (YELLOW); URINE GLUCOSE (Dip) NEGATIVE (NEGATIVE); URINE KETONES (Dip) NEGATIVE (NEGATIVE); URINE LEUKOCYTE ESTERASE (Dip) NEGATIVE (NEGATIVE); URINE NITRITE (Dip) NEGATIVE (NEGATIVE); URINE TOTAL PROTEIN (Dip) NEGATIVE (NEGATIVE); URINE UROBILINOGEN (Dip) 0.2 E.U./dL (0.1-1.0)
--- NOTE | 2016-08-21 21:34 | RADRPT ---
PROCEDURE: US OB. CLINICAL INDICATION: Size and dates , pelvic pain TECHNIQUE: Multiple sonographic images of the pelvis and gravid uterus were obtained. The images were reviewed on a PACS workstation. COMPARISON: 07/26/2016 FINDINGS: There is a single viable intrauterine gestation. Cardiac activity is present with 144 beats per min [place]. There is a breech presentation. The placenta is posterior. There is no evidence for an abruption or placenta previa. There is a normal amount of amniotic fluid with a MVP = 4.4 cm. Measurements were made in order to determine age. The results are as follows: BPD =2.9 cm HC =11.1 cm AC =8.9 cm FL =1.6 cm Estimated gestational age of approximately 15 weeks and 1 day based on ultrasound measurements. Clinical age: 15 weeks and 0 days. The estimated date of delivery is 02/11/2017, based on ultrasound measurements. The EFW = 109 g, 30.8%, based on LMP age. RPTAT: AA IMPRESSION: Single viable intrauterine gestation of approximately 15 weeks and 1 day based on ultrasound measur ements. .Michele Polanco MD, Date Time Electronically viewed and signed by .Michele Polanco MD, on 08/21/2016 21:34 .S/
--- NOTE | 2016-08-21 22:19 | ERA ---
ER Documentation Chief Complaint Date/Time DATE: 08/21/16 TIME: 22:18 Chief Complaint 15 weeks , pap smear yesterday, now vag fluids leaking/abd cramps HPI This is a 31-year-old female 15 weeks . . Patient received a Pap smear yesterday and now has vaginal fluids leaking abdominal cramps 12 hours that occurred when she was driving. Says the pain is 3 out of 10 and is described as crampy. Patient says that the fluid was clear and denies any characteristics including smell or evidence of blood. Patient says the pain is mild. Patient denies any medical history. ROS All systems reviewed and are negative except as per history of present illness. Medications Home Meds Active Scripts Nitrofurantoin Monohyd Macrocr (Macrobid) 100 Mg Capsr, 100 MG PO BID, #14 CAP Prov:WOLFGANG WOODRUFF MD 07/26/16 Lorazepam* (Lorazepam*) 1 Mg Tablet, 1 MG PO Q8H Y for ANXIETY, #8 TAB Prov:ARGELIA TOPETE MD 07/03/16 Lorazepam* (Ativan*) 0.5 Mg Tablet, 0.5 MG PO Q8H Y for ANXIETY, #12 TAB Prov:WOLFGANG WOODRUFF MD 06/13/16 Albuterol Sulfate* (Proair HFA*) 8.5 Gm Hfa.aer.ad, 2 PUFF INH Q4, #1 INHALER Prov:JANNETTE HONG PA-C 03/17/16 Benzonatate* (Tessalon Perle*) 100 Mg Capsule, 100 MG PO Q8H Y for COUGH, #20 CAP Prov:JANNETTE HONG PA-C 03/17/16 Methylprednisolone* (Medrol* DOSE PACK) 4 Mg/Dose-Pack Tab.ds.pk, 4 MG PO . DIRECTED, #1 PACKET Prov:ROSE BALL PA-C 04/10/15 Naproxen* (Naprosyn*) 500 Mg Tablet, 500 MG PO BID Y for PAIN AND/OR INFLAMMATION, #30 TAB Prov:ROSE BALL PA-C 04/10/15 Prednisone* (Prednisone*) 50 Mg Tablet, 50 MG PO DAILY, #5 TAB Prov:NICANOR CHAIDEZ PA-C 02/22/15 Amoxicillin* (Amoxicillin*) 500 Mg Cap, 500 MG PO BID for 7 Days, CAP Prov:CHAIDEZNICANOR LUGO PA-C 02/22/15 Reported Medications [Depo-Provera] No Conflict Check, IM Q3 MONTHS 08/10/12 Ibuprofen (Motrin) 400 Mg Tablet 05/08/11 [None] No Conflict Check 04/20/09 Allergies Allergies: Coded Allergies: No Known Allergies (Verified Allergy, Mild, 08/21/16) PMhx/Soc Medical and Surgical Hx: pt denies Surgical Hx History of Surgery: No Anesthesia Reaction: No Hx Neurological Disorder: No Hx Respiratory Disorders: No Hx Cardiac Disorders: No Hx Psychiatric Problems: Yes (anxiety) Hx Miscellaneous Medical Probl: Yes (ANXIETY ) Hx Alcohol Use: No Hx Substance Use: No Hx Tobacco Use: No Physical Exam Vitals Vital Signs Date Time Temp Pulse Resp B/P Pulse Ox O2 Delivery O2 Flow Rate FiO2 08/21/16 19:31 98.7 75 20 119/68 100 Physical Exam Const: Well-appearing 31-year-old female who is no acute distress Head: Atraumatic Eyes: Normal Conjunctiva ENT: Normal External Ears, Nose and Mouth. Neck: Full range of motion..~ No meningismus. Resp: Clear to auscultation bilaterally Cardio: Regular rate and rhythm, no murmurs Abd: Soft, non tender, non distended. Normal bowel sounds Skin: No petechiae or rashes Back: No midline or flank tenderness Ext: No cyanosis, or edema Neur: Awake and alert Psych: Normal Mood and Affect Result Diagram: 08/21/16 2030 Results 24 hrs Laboratory Tests Test 08/21/16 20:20 08/21/16 20:30 Urine Color LT. YELLOW Urine Clarity CLEAR Urine pH 6.0 Urine Specific [place] <=1.005 Urine Ketones NEGATIVE Urine Nitrite NEGATIVE Urine Bilirubin NEGATIVE Urine Urobilinogen 0.2 E.U./dL Urine Leukocyte Esterase NEGATIVE Urine Hemoglobin NEGATIVE Urine Glucose NEGATIVE% Urine Total Protein NEGATIVE White Blood Count 9.210^3/ul Red Blood Count 4.2410^6/ul Hemoglobin 12.6g/dl Hematocrit 37.2% Mean Corpuscular Volume 87.7fl Mean Corpuscular Hemoglobin 29.7pg Mean Corpuscular Hemoglobin Concent 33.9g/dl Red Cell Distribution Width 13.9% Platelet Count 94140^3/UL Mean Platelet Volume 10.2fl Neutrophils % 62.5% Lymphocytes % 28.8% Monocytes % 6.5% Eosinophils % 1.4% Basophils % 0.4% Nucleated Red Blood Cells % 0.0/100WBC Neutrophils # 5.810^3/ul Lymphocytes # 2.710^3/ul Monocytes # 0.610^3/ul Eosinophils # 0.110^3/ul Basophils # 0.010^3/ul Nucleated Red Blood Cells # 0.010^3/ul Beta HCG, Quantitative 36533.0mIU/ml Procedures/MDM 31-year-old female who is 14 weeks and 2 days per last ultrasound measurements. Patient is presenting with signs and symptoms consistent with possible premature rupture of membranes. Physical exam unremarkable. Patient is in no acute distress and seems otherwise well. Went ahead and enlisted the help of my supervising physician Dr. Woodruff. He suggested doing a workup with a non-transvaginal second trimester ultrasound and blood work and urinalysis. Patient's workup was unremarkable. Urine was unremarkable. Ultrasound was read by the radiologist and revealed the following: Single viable intrauterine gestation of approximately 15 weeks and 1 day based on ultrasound measurements. Before discharge I reviewed the results with Dr. Gold who agreed that discharge was appropriate at that time. At this time I very little suspicion for P PROM, placenta previa, placenta abruptio, or endangerment of the fetus. Patient's vitals are stable. Upon reevaluation I can find that the patient was no longer there and had eloped. Departure Diagnosis: Primary Impression: Abdominal pain Qualified Code: R10.30 - Lower abdominal pain Additional Impression: Pelvic pain affecting Condition: Stable Additional Instructions: Follow-up with the [employer] in 2 days for a more thorough evaluation and a possible referral to a specialist. Return the the emergency department immediately if symptoms worsen or change. If you have any questions regarding medications, ask your pharmacist or us before you leave. If any adverse reactions occur while taking your medications, discontinue the treatment and return to the emergency department immediately. Take your medications as directed, and complete the entire course of treatment. GUILLERMO FISHER PA-C Aug 21, 2016 22:19
== END 2016-08-21 22:53 | disposition left against medical advice (07) ==
LOC: FTE 19:15
DX: O26.892 Other specified pregnancy related conditions, second trimester (principal); R10.30 Lower abdominal pain, unspecified; R10.2 Pelvic and perineal pain; Z3A.15 15 weeks gestation of pregnancy
CPT/HCPCS: 36415; 76805; 81003; 84702; 85025; 86900; 86901

== ENCOUNTER 2016-10-05 23:50 | Outpatient (CLI) | payer OTHER ==
[~2016-10-05] VITALS: Ht 167.6 cm; Wt 100.4 kg
[2016-10-05 23:57] VITALS: BP 124/71; PULSE 104
[2016-10-06 00:08] VITALS: Ht 167.6 cm; Wt 100.4 kg
[2016-10-06 01:31] LABS: BASOPHILS % 0.4 % (0.0-2.0); EOSINOPHILS # 0.1 10^3/ul (0.0-0.5); EOSINOPHILS % 1.3 % (0.0-7.0); HEMATOCRIT 35.8 % (37.0-47.0); HEMOGLOBIN 12.2 g/dl (12.0-16.0); LYMPHOCYTES # 2.6 10^3/ul (0.8-2.9); LYMPHOCYTES % 23.4 % (15.0-51.0); MEAN CORPUSCULAR HEMOGLOBIN 29.5 pg (29.0-33.0); MEAN CORPUSCULAR HGB CONC 34.1 g/dl (32.0-37.0); MEAN CORPUSCULAR VOLUME 86.7 fl (82.0-101.0); MEAN PLATELET VOLUME 10.2 fl (7.4-10.4); MONOCYTE # 0.8 10^3/ul (0.3-0.9); MONOCYTES % 7.5 % (0.0-11.0); NEUTROPHIL # 7.4 10^3/ul (1.6-7.5); NEUTROPHILS % 66.9 % (39.0-77.0); PLATELET COUNT 261 10^3/UL (140-415); RED BLOOD COUNT 4.13 10^6/ul (4.20-5.40); RED CELL DISTRIBUTION WIDTH 13.4 % (11.5-14.5)
[2016-10-06 01:41] LABS: ADD UMIC NO; UR ASCORBIC ACID NEGATIVE (NEGATIVE); UR BILIRUBIN (Dip) NEGATIVE (NEGATIVE); UR BLOOD (Dip) NEGATIVE (NEGATIVE); UR CLARITY CLEAR (CLEAR); UR COLOR STRAW (YELLOW); UR GLUCOSE (Dip) NEGATIVE (NEGATIVE); UR KETONES (Dip) NEGATIVE (NEGATIVE); UR LEUKOCYTE ESTERASE (Dip) NEGATIVE Leu/ul (NEGATIVE); UR NITRITE (Dip) NEGATIVE (NEGATIVE); UR SPECIFIC GRAVITY (Dip) 1.005 (1.003-1.030); UR TOTAL PROTEIN (Dip) NEGATIVE (NEGATIVE); UR UROBILINOGEN (Dip) NEGATIVE (NEGATIVE)
--- NOTE | 2016-10-06 02:10 | RADRPT ---
PROCEDURE: ULTRASOUND OBSTETRICAL CLINICAL INDICATION: 31-year-old female in labor for cervical length evaluation. TECHNIQUE: Multiple sonographic images of the pelvis were obtained. The images were reviewed on a PACS workstation. COMPARISON: Ultrasound OB August 21, 2016. FINDINGS: The cervix is closed with a length of approximately 4.3 cm. There is a single intrauterine gestation . IMPRESSION: The cervix is closed with a length of 4.3 cm. .Andrew Fisher MD, MD Date Time Electronically viewed and signed by .Andrew Fisher MD, MD on 10/06/2016 02:10 .M/
[2016-10-06] MEDS ORDERED: PRENAT PO (03:48)
--- NOTE | 2016-10-06 04:15 | PN ---
Triage Information Date/Time October 06, 2016 Weeks of Gestation 23 weeks : 5 Para: 4 Diabetes: none Hypertention: none Additional information Pt came in c/o contractions. No bleeding or leaking. PMHx: none. PSHx: none. NKDA. Objective Vital Signs Date Time Temp Pulse Resp B/P Pulse Ox O2 Delivery O2 Flow Rate FiO2 10/05/16 23:57 98.5 104 124/71 Room Air Heart Rate: 140's Contractions: None Results/Medications Result Diagram: 10/06/16 0110 Results 24 hrs Laboratory Tests Test 10/06/16 01:10 White Blood Count 11.0 H Red Blood Count 4.13 L Hemoglobin 12.2 Hematocrit 35.8 L Mean Corpuscular Volume 86.7 Mean Corpuscular Hemoglobin 29.5 Mean Corpuscular Hemoglobin Concent 34.1 Red Cell Distribution Width 13.4 Platelet Count 261 Mean Platelet Volume 10.2 Neutrophils % 66.9 Lymphocytes % 23.4 Monocytes % 7.5 Eosinophils % 1.3 Basophils % 0.4 Nucleated Red Blood Cells % 0.0 Neutrophils # 7.4 Lymphocytes # 2.6 Monocytes # 0.8 Eosinophils # 0.1 Basophils # 0.0 Nucleated Red Blood Cells # 0.0 Urine Color STRAW Urine Clarity CLEAR Urine pH 7.0 Urine Specific [place] 1.005 Urine Ketones NEGATIVE Urine Nitrite NEGATIVE Urine Bilirubin NEGATIVE Urine Urobilinogen NEGATIVE Urine Leukocyte Esterase NEGATIVE Urine Hemoglobin NEGATIVE Urine Glucose NEGATIVE Urine Total Protein NEGATIVE Imaging Results Cervical length 4.3 cm. Assessment/Plan A: IUP at 23 weeks. False labor. P: D/C home. F/U with Dr Zaman in one week. CAITLIN GERMAN MD Oct 06, 2016 04:14
--- NOTE | 2016-10-06 04:31 | TRIAGE ---
OB Triage Datetime Report Generated by CPN: 10/06/2016 04:30 Datetime: 10/06/2016 04:14 Stage of : OB Triage Datetime: 10/06/2016 04:00 Stage of : OB Triage Datetime: 10/06/2016 03:54 Stage of : OB Triage Temperature Route: Oral Pain Assessment Pain Scale: 0 Pain Presence: None/Denies Pain Type: N/A Datetime: 10/06/2016 03:00 Monitor Mode: External Resting Tone Lohman: Relaxed Contraction Comments: NO UC'S NOTED, PT DENIES FEELING UC'S Datetime: 10/06/2016 02:00 Monitor Mode: External Resting Tone [place]: Relaxed Contraction Comments: NO UC'S NOTED, PT DENIES FEELING UC'S Datetime: 10/06/2016 01:00 Stage of : OB Triage Labor Evaluation Frequency: OCCASIONAL Monitor Mode: External Duration (sec)2399: 60 Quality: Mild Pattern: Normal: <= 5 Contractions in 10 Minutes Resting Tone Lohman: Relaxed Contraction Comments: 1 UC NOTED Datetime: 10/06/2016 00:05 Stage of : OB Triage Assessment Type: Triage Maternal Assessment Level of Consciousness: Fully Conscious DTR's/Clonus: DTRs 2+; No Clonus Headache: Denies Blurred Vision: No Respiratory Effort: Unlabored; Regular Rhythm; Equal Expansion Breath Sounds, Left: Clear and Equal Breath Sounds, Right: Clear and Equal Nausea/Vomiting: Denies RUQ Epigastric Pain: Denies Lower Extremities Edema: None Degree: None Upper Extremities Edema: None Degree: None Facial Edema: None Fall Risk Assessment History of Falling: (0) No Secondary Diagnosis: (0) No Ambulatory Aid: (0) Bedrest/Nurse Assist IV Therapy: (0) No Gait: (0) Normal/Bedrest/Immobile Mental Status: (0) Oriented to Own Ability Fall Score: 0 Fall Risk Score Definition: No Risk: No action required Pain Assessment Pain Scale: 0 Pain Presence: None/Denies Pain Type: N/A Datetime: 10/06/2016 00:04 EGA: 23.0 Datetime: 10/06/2016 00:03 Time of Arrival: 10/06/2016 23:45 Arrived By: Wheelchair Arrived From: Home Chief Complaint: UC'S, C/O 1/HR Movement: Present Contractions: Irregular Time Contractions Began: 10/05/2016 19:00 Rupture of Membranes: Denies Vaginal Bleeding: None Vaginal Discharge: Denies Recent Sexual Intercouse: Denies Patient Complaints: Contractions Time Provider Notified: 10/06/2016 01:00 Provider Notified: DR FIGUEROA Heart Rate FHR Baseline Rate: 150 Monitor Mode: Doppler Datetime: 10/05/2016 23:59 Stage of : OB Triage Datetime: 10/05/2016 23:57 Stage of : OB Triage Temperature Route: Oral Pain Assessment Pain Scale: 0 Pain Presence: None/Denies Pain Type: N/A
== END 2016-10-06 04:14 | disposition home or self-care (01) ==
LOC: OBT 23:50 → L-D 23:50 → OBT 10-06 04:14
PROVIDERS: ATTEND Obstetrics & Gynecology
DX: O47.02 False labor before 37 completed weeks of gestation, second trimester (principal); Z3A.23 23 weeks gestation of pregnancy
CPT/HCPCS: 76817; 81003; 85025; Z7500; G0463

== ENCOUNTER 2017-01-11 17:26 | Outpatient (CLI) | payer OTHER ==
[~2017-01-11] VITALS: Ht 167.6 cm; Wt 110.4 kg
[~2017-01-11 17:26] MED LIST changes: -AMO500 PO; -BENZ100C70 PO; -DEPO-PROVERA IM; -IBUP-725; -MED4DP PO; -NAPR-260 PO; -NITR-58 PO; -PRED50TA PO; +PRENAT PO
[2017-01-11 17:54] VITALS: Ht 167.6 cm; Wt 110.4 kg
[2017-01-11 17:55] VITALS: BP 130/88; PULSE 99; RESP 18
[2017-01-11] MEDS ORDERED: FLUO20CA38 PO (18:08)
[2017-01-11] MEDS ORDERED: ACET-2047 PO (18:08)
[2017-01-11] MEDS ORDERED: FLUT16SP17 NASAL (18:08)
[2017-01-11 18:27] LABS: BASOPHILS % 0.4 % (0.0-2.0); EOSINOPHILS # 0.1 10^3/ul (0.0-0.5); EOSINOPHILS % 1.1 % (0.0-7.0); HEMATOCRIT 34.8 % (37.0-47.0); HEMOGLOBIN 11.8 g/dl (12.0-16.0); LYMPHOCYTES # 2.7 10^3/ul (0.8-2.9); LYMPHOCYTES % 23.9 % (15.0-51.0); MEAN CORPUSCULAR HEMOGLOBIN 27.7 pg (29.0-33.0); MEAN CORPUSCULAR HGB CONC 33.9 g/dl (32.0-37.0); MEAN CORPUSCULAR VOLUME 81.7 fl (82.0-101.0); MEAN PLATELET VOLUME 10.5 fl (7.4-10.4); MONOCYTE # 0.8 10^3/ul (0.3-0.9); MONOCYTES % 7.1 % (0.0-11.0); NEUTROPHIL # 7.5 10^3/ul (1.6-7.5); NEUTROPHILS % 66.4 % (39.0-77.0); PLATELET COUNT 245 10^3/UL (140-415); RED BLOOD COUNT 4.26 10^6/ul (4.20-5.40); RED CELL DISTRIBUTION WIDTH 14.1 % (11.5-14.5); WHITE BLOOD COUNT 11.3 10^3/ul (4.8-10.8)
[2017-01-11 18:40] LABS: ADD UMIC YES; UR ASCORBIC ACID NEGATIVE (NEGATIVE); UR BACTERIA FEW /HPF (NONE SEEN); UR BILIRUBIN (Dip) NEGATIVE (NEGATIVE); UR BLOOD (Dip) NEGATIVE (NEGATIVE); UR CLARITY CLEAR (CLEAR); UR COLOR STRAW (YELLOW); UR GLUCOSE (Dip) NEGATIVE (NEGATIVE); UR KETONES (Dip) NEGATIVE (NEGATIVE); UR LEUKOCYTE ESTERASE (Dip) 1+ Leu/ul (NEGATIVE); UR NITRITE (Dip) NEGATIVE (NEGATIVE); UR RBC 2 /HPF (0-5); UR SPECIFIC GRAVITY (Dip) 1.004 (1.003-1.030); UR SQUAMOUS EPITHELIAL CELL FEW /HPF (FEW); UR TOTAL PROTEIN (Dip) NEGATIVE (NEGATIVE); UR UROBILINOGEN (Dip) NEGATIVE (NEGATIVE)
[2017-01-11 18:44] LABS: ALBUMIN 3.7 g/dl (3.3-4.9); ALBUMIN/GLOBULIN RATIO 1.27; BILIRUBIN,INDIRECT 0.1 mg/dl (0-1.1); BILIRUBIN,TOTAL 0.1 mg/dl (0.2-1.3); CALCIUM 8.4 mg/dl (8.4-10.2); CREATININE 0.65 mg/dl (0.44-1.00); POTASSIUM 3.5 mmol/L (3.5-5.1); TOTAL PROTEIN 6.6 g/dl (6.1-8.1); URIC ACID 4.8 mg/dl (3.1-7.9)
[2017-01-11 18:46] LABS: INR 1.13; PROTIME 14.5 Sec (12.2-14.2); PT RATIO 1.1
[2017-01-11 18:47] LABS: PARTIAL THROMBOPLASTIN TIME 28.8 Sec (25.0-35.0)
--- NOTE | 2017-01-11 19:50 | RADRPT ---
PROCEDURE: Obstetrical ultrasound for biophysical profile CLINICAL INDICATION: Biophysical profile. . TECHNIQUE: Obstetrical ultrasound of the uterus for biophysical profile. Transabdominal views are obtained. COMPARISON: 10/06/2016 FINDINGS: Single intrauterine gestation. Presentation: Cephalic. Placenta: Fundal No evidence of placental abruption. No evidence of placenta previa. breathing movement = 2/2 tone = 2/2 motion = 2/2 ROMIE = 2/2 ROMIE = 6.3 cm heart rate: 137 beats per minute IMPRESSION: Single intrauterine gestation. Biophysical profile 10/21 Low normal amniotic fluid index. RPTAT: AADD .Teddy Tristan MD, MD Date Time Electronically viewed and signed by .Teddy Tristan MD, on 01/11/2017 19:49 .B/
--- NOTE | 2017-01-11 20:41 | PN ---
Triage Information Date/Time Reason for visit: Weeks of Gestation 36+ /Para 7/4 Diabetes: none Hypertention: none Objective Vital Signs Date Time Temp Pulse Resp B/P Pulse Ox O2 Delivery O2 Flow Rate FiO2 01/11/17 17:55 98.1 99 18 130/88 Heart Rate: 140's Contractions: None Results/Medications Result Diagram: 01/11/17 1820 01/11/17 1820 Results 24 hrs Laboratory Tests Test 01/11/17 17:35 01/11/17 18:20 Urine Color STRAW Urine Clarity CLEAR Urine pH 6.0 Urine Specific [place] 1.004 Urine Ketones NEGATIVE Urine Nitrite NEGATIVE Urine Bilirubin NEGATIVE Urine Urobilinogen NEGATIVE Urine Leukocyte Esterase 1+ H Urine Microscopic RBC 2 Urine Microscopic WBC 1 Urine Squamous Epithelial Cells FEW Urine Bacteria FEW A Urine Hemoglobin NEGATIVE Urine Glucose NEGATIVE Urine Total Protein NEGATIVE White Blood Count 11.3 H Red Blood Count 4.26 Hemoglobin 11.8 L Hematocrit 34.8 L Mean Corpuscular Volume 81.7 L Mean Corpuscular Hemoglobin 27.7 L Mean Corpuscular Hemoglobin Concent 33.9 Red Cell Distribution Width 14.1 Platelet Count 245 Mean Platelet Volume 10.5 H Neutrophils % 66.4 Lymphocytes % 23.9 Monocytes % 7.1 Eosinophils % 1.1 Basophils % 0.4 Nucleated Red Blood Cells % 0.0 Neutrophils # 7.5 Lymphocytes # 2.7 Monocytes # 0.8 Eosinophils # 0.1 Basophils # 0.0 Nucleated Red Blood Cells # 0.0 Prothrombin Time 14.5 H Prothrombin Time Ratio 1.1 INR International Normalized Ratio 1.13 Activated Partial Thromboplast Time 28.8 Fibrinogen 522.0 H Sodium Level 139 Potassium Level 3.5 Chloride Level 106 Carbon Dioxide Level 22 Anion Gap 15 Blood Urea Nitrogen 6 L Creatinine 0.65 Glucose Level 92 Uric Acid 4.8 Calcium Level 8.4 Total Bilirubin 0.1 L Direct Bilirubin 0.00 Indirect Bilirubin 0.1 Aspartate Amino Transf (AST/SGOT) 12 L Alanine Aminotransferase (ALT/SGPT) 23 Alkaline Phosphatase 143 H Total Protein 6.6 Albumin 3.7 Globulin 2.90 Albumin/Globulin Ratio 1.27 Disposition: Discharge Assessment/Plan patient is advised to stay for IV hyration as ROMIE is low.She signs AM despite full explanation the risks She needs to repeat ROMIE and recommended to take PO fluids ANSELMO SANTOS M.D. Jan 11, 2017 20:41
--- NOTE | 2017-01-11 21:11 | TRIAGE ---
OB Triage Datetime Report Generated by CPN: 01/11/2017 21:11 Datetime: 01/11/2017 20:55 Stage of : OB Triage Datetime: 01/11/2017 20:54 Stage of : OB Triage Datetime: 01/11/2017 20:53 Stage of : OB Triage Datetime: 01/11/2017 20:23 Stage of : OB Triage Datetime: 01/11/2017 20:22 Stage of : OB Triage Datetime: 01/11/2017 20:15 Pain Assessment Pain Scale: 6 Pain Presence: Constant Pain Type: Ache Pain Location: Other Pain Assessment Comments: PT REPORTED SEVERE TOOTHACHE Datetime: 01/11/2017 19:38 Labor Evaluation Frequency: OCC Monitor Mode: External Duration (sec)2399: 90 Resting Tone [place]: Relaxed Contraction Comments: PT DENIES FEELING UC'S OR CRAMPING. Heart Rate FHR Baseline Rate: 145 Variability: Moderate 6-25 bpm Accelerations: 15X15 Comments: PT REPORTED MOVEMENT Datetime: 01/11/2017 19:35 Stage of : OB Triage Pain Assessment Pain Scale: 6 Pain Presence: Constant Pain Type: Ache Pain Location: Head Datetime: 01/11/2017 19:33 Monitor Mode: External Monitor Mode: External US Datetime: 01/11/2017 17:50 Stage of : OB Triage Datetime: 01/11/2017 17:40 Stage of : OB Triage Assessment Type: Triage Maternal Assessment Level of Consciousness: Fully Conscious DTR's/Clonus: DTRs 2+; No Clonus Respiratory Effort: Unlabored; Regular Rhythm; Equal Expansion Breath Sounds, Left: Clear and Equal Breath Sounds, Right: Clear and Equal RUQ Epigastric Pain: Denies Facial Edema: None Temperature Route: Axillary Fall Risk Assessment History of Falling: (0) No Secondary Diagnosis: (0) No Ambulatory Aid: (0) Bedrest/Nurse Assist IV Therapy: (0) No Gait: (0) Normal/Bedrest/Immobile Mental Status: (0) Oriented to Own Ability Fall Score: 0 Fall Risk Score Definition: No Risk: No action required Labor Evaluation Frequency: 0 Monitor Mode: External Resting Tone [place]: Relaxed Heart Rate FHR Baseline Rate: 155 Monitor Mode: External US Variability: Moderate 6-25 bpm Decelerations: None Category: Category I Pain Assessment Pain Scale: 6 Pain Presence: Constant Pain Type: Ache Pain Location: Head Pain Goal: 3 Pain Relief Measures: Comfort Measures Datetime: 01/11/2017 17:38 Time of Arrival: 01/11/2017 17:20 EGA: 35.3 Arrived By: Ambulatory Arrived From: Dr. Silva Chief Complaint: WAS REFERRED FROM DR SILVA LAST , DECIDED TO COME TODAY INSTEAD, CONSTANT H EADACHE, BLURRY VISION, NUMBNESS IN LEGS THAT IS INTERRMITTENT. DENIES LEAKING, BLEEDING, HAS OCCA S UCS Movement: Present Contractions: Irregular Rupture of Membranes: Denies Vaginal Bleeding: None Vaginal Discharge: Denies Recent Sexual Intercouse: Denies Abdominal Trauma: Not Applicable Patient Complaints: Headache; Visual Disturbance; Nausea Additional Patient Complaints: TOOTHACHE Time Provider Notified: 01/11/2017 17:50 Provider Notified: HENRY Initial Plan: MONITOR, PIH PANEL Datetime: 10/06/2016 04:05 Stage of : OB Triage Labor Evaluation Frequency: 0 Monitor Mode: External Resting Tone [place]: Relaxed Contraction Comments: pt denies feeling cramping, ucs. Abdomen remains soft to plapation Datetime: 10/06/2016 00:05 Fall Score: 0 Fall Risk Score Definition: No Risk: No action required Datetime: 10/06/2016 00:04 EGA: 21.4 Datetime: 10/06/2016 00:03 Initial Plan: VS, FHTS, TOCO, UA, CBC, CL
== END 2017-01-11 20:56 | disposition left against medical advice (07) ==
LOC: OBT 17:26 → L-D 17:26 → OBT 20:56
PROVIDERS: ATTEND Obstetrics & Gynecology
DX: Z53.21 Procedure and treatment not carried out due to patient leaving prior to being seen by health care provider (principal); O26.893 Other specified pregnancy related conditions, third trimester; Z3A.36 36 weeks gestation of pregnancy; R51 Headache
CPT/HCPCS: 76818; 80053; 81001; 84560; 85025; 85384; 85610; 85730; Z7500; G0463

== ENCOUNTER 2017-01-20 11:57 | Outpatient (CLI) | payer OTHER ==
[~2017-01-20] VITALS: Ht 167.6 cm; Wt 105.9 kg
[~2017-01-20 11:57] MED LIST changes: +ACET-2047 PO; +FLUO20CA38 PO; +FLUT16SP17 NASAL
[2017-01-20 12:12] VITALS: BP 116/64; PULSE 89; RESP 19; Ht 167.6 cm; Wt 105.9 kg
--- NOTE | 2017-01-20 12:41 | RADRPT ---
PROCEDURE: OB ultrasound for biophysical profile CLINICAL INDICATION: Spontaneous rupture of membranes TECHNIQUE: Multiple sonographic images of the pelvis were obtained. Transabdominal views of the g ravid uterus are available for review. The images were reviewed on a PACS workstation. COMPARISON: Biophysical profile dated 01/11/2017 FINDINGS: breathing movement = 2/2 tone = 2/2 motion = 2/2 ROMIE = 2/2 (greatest vertical pocket greater than 2 cm) ROMIE = 6.2 cm Single live intrauterine with cardiac activity of 137 bpm. position is cephal ic. The placenta is posterior. IMPRESSION: 1. Single live intrauterine gestation. 2. Biophysical profile = /8. 3. ROMIE = 6.2 cm. RPTAT: HH .Emily Pedroza MD, Date Time Electronically viewed and signed by .Emily Pedroza MD, on 01/20/2017 12:40 .G/
[2017-01-20] MEDS ORDERED: TERBUTALINE 1 MG/ML INJ SC ONE (13:30)
[2017-01-20] MEDS ORDERED: LACTATED RINGER'S 250 ML IV ONE (13:30)
[2017-01-20] MEDS ORDERED: BETAMET NA PHOS/AC(6 MG/ML) 5ML INJ IM ONE (17:30)
[2017-01-20] MEDS ORDERED: NIFEdipine 10 MG CAP PO ONE (17:30)
--- NOTE | 2017-01-20 17:33 | PN ---
Triage Information Date/Time January 20, 2017 Reason for visit: SROM Weeks of Gestation 36.5 /Para 7 para 5 Diabetes: none Hypertention: none Additional information Complaining of leakage of fluid when coughing Claims she has a temperature this morning Denies uterine contractions Objective Vital Signs Date Time Temp Pulse Resp B/P Pulse Ox O2 Delivery O2 Flow Rate FiO2 01/20/17 12:12 98.0 89 19 116/64 99 Room Air Heart Rate: 140's Heart Rate Comments Reactive Contractions: 6-10 Minutes Apart Exam Long and closed Sensitive test for spontaneous rupture of membrane remained negative Results/Medications Results 24 hrs Laboratory Tests Test 01/20/17 12:00 Membranes Rupture NEGATIVE Imaging Results Single live intrauterine gestation. Biophysical profile = 10/21. ROMIE = 6.2 cm. Disposition: Discharge Assessment/Plan Patient with decreased amniotic fluid We will revisit next day for amniotic fluid index Continue to monitor vital signs at home Recommended to refer back to labor and delivery in case of uterine contractions and or spontaneous rupture of membrane After receiving IV hydration 1 dose of subcutaneous terbutaline contractions totally subsided YANN FERNANDEZ MD Jan 20, 2017 17:33
--- NOTE | 2017-01-20 17:46 | TRIAGE ---
OB Triage Datetime Report Generated by CPN: 01/20/2017 17:46 Datetime: 01/20/2017 17:44 Stage of : OB Triage DTR's/Clonus: DTRs 1+ Headache: Denies Breath Sounds, Left: Clear and Equal Breath Sounds, Right: Clear and Equal RUQ Epigastric Pain: Denies Monitor Mode: External Resting Tone [place]: Relaxed Heart Rate FHR Baseline Rate: 120 Monitor Mode: External US Variability: Moderate 6-25 bpm Accelerations: 15X15 Decelerations: None Category: Category I Pain Assessment Pain Scale: 0 Pain Presence: None/Denies Pain Type: N/A Pain Goal: 0 Datetime: 01/20/2017 17:00 Stage of : OB Triage DTR's/Clonus: DTRs 1+ Headache: Denies Breath Sounds, Left: Clear and Equal Breath Sounds, Right: Clear and Equal RUQ Epigastric Pain: Denies Monitor Mode: External Resting Tone [place]: Relaxed Heart Rate FHR Baseline Rate: 120 Monitor Mode: External US Variability: Moderate 6-25 bpm Accelerations: 15X15 Decelerations: None Pain Assessment Pain Scale: 0 Pain Presence: None/Denies Pain Type: N/A Pain Goal: 0 Datetime: 01/20/2017 16:00 Stage of : OB Triage DTR's/Clonus: DTRs 1+ Headache: Denies Breath Sounds, Left: Clear and Equal Breath Sounds, Right: Clear and Equal RUQ Epigastric Pain: Denies Monitor Mode: External Resting Tone [place]: Relaxed Heart Rate FHR Baseline Rate: 120 Monitor Mode: External US Variability: Moderate 6-25 bpm Accelerations: 15X15 Decelerations: None Category: Category I Pain Assessment Pain Scale: 0 Pain Presence: None/Denies Pain Type: N/A Pain Goal: 0 Datetime: 01/20/2017 15:00 Stage of : OB Triage DTR's/Clonus: DTRs 1+ Headache: Denies Breath Sounds, Left: Clear and Equal Breath Sounds, Right: Clear and Equal RUQ Epigastric Pain: Denies Monitor Mode: External Pattern: Normal: <= 5 Contractions in 10 Minutes Resting Tone [place]: Relaxed Heart Rate FHR Baseline Rate: 120 Monitor Mode: External US Variability: Moderate 6-25 bpm Accelerations: 15X15 Decelerations: None Category: Category I Pain Assessment Pain Scale: 0 Pain Presence: None/Denies Pain Type: N/A Pain Goal: 0 Datetime: 01/20/2017 13:57 Stage of : OB Triage DTR's/Clonus: DTRs 1+ Headache: Denies Breath Sounds, Left: Clear and Equal Breath Sounds, Right: Clear and Equal RUQ Epigastric Pain: Denies Labor Evaluation Frequency: IRREGULAR Monitor Mode: External Duration (sec)2399: 40-50 Quality: Mild Pattern: Normal: <= 5 Contractions in 10 Minutes Resting Tone [place]: Relaxed Heart Rate FHR Baseline Rate: 120 Monitor Mode: External US Variability: Moderate 6-25 bpm Accelerations: 15X15 Decelerations: None Category: Category I Pain Presence: None/Denies Pain Type: N/A Datetime: 01/20/2017 13:45 Stage of : OB Triage Datetime: 01/20/2017 13:04 Stage of : OB Triage DTR's/Clonus: DTRs 1+ Headache: Denies Breath Sounds, Left: Clear and Equal Breath Sounds, Right: Clear and Equal RUQ Epigastric Pain: Denies Labor Evaluation Frequency: NONE Monitor Mode: External Resting Tone [place]: Relaxed Heart Rate FHR Baseline Rate: 135 Monitor Mode: External US Variability: Moderate 6-25 bpm Accelerations: 15X15 Decelerations: None Category: Category I Pain Presence: None/Denies Pain Type: N/A Datetime: 01/20/2017 12:21 DTR's/Clonus: DTRs 1+ Headache: Denies Blurred Vision: No Breath Sounds, Left: Clear and Equal Breath Sounds, Right: Clear and Equal RUQ Epigastric Pain: Denies Facial Edema: None Labor Evaluation Frequency: NONE Monitor Mode: External Resting Tone [place]: Relaxed Heart Rate FHR Baseline Rate: 135 Monitor Mode: External US Variability: Moderate 6-25 bpm Accelerations: 15X15 Decelerations: None Category: Category I Pain Presence: None/Denies Pain Type: N/A Datetime: 01/20/2017 12:01 Assessment Type: Triage Maternal Assessment Level of Consciousness: Fully Conscious DTR's/Clonus: DTRs 2+; No Clonus Headache: Denies Blurred Vision: No Respiratory Effort: Unlabored; Regular Rhythm; Equal Expansion Breath Sounds, Left: Clear and Equal Breath Sounds, Right: Clear and Equal Nausea/Vomiting: Denies RUQ Epigastric Pain: Denies Lower Extremities Edema: None Degree: None Upper Extremities Edema: None Degree: None Facial Edema: None Fall Risk Assessment History of Falling: (0) No Secondary Diagnosis: (0) No Ambulatory Aid: (0) Bedrest/Nurse Assist IV Therapy: (0) No Gait: (0) Normal/Bedrest/Immobile Mental Status: (0) Oriented to Own Ability Fall Score: 0 Fall Risk Score Definition: No Risk: No action required Datetime: 01/20/2017 11:56 Time of Arrival: 01/20/2017 11:56 EGA: 36.5 Arrived By: Ambulatory Arrived From: Dr. Roman Chief Complaint: PT CAME IN C/O OF SWELLING OF HER FEET, HANDS, AND LIPS SINCE X2, LEAKING FLUID S [place] LAST NIGHT, AND FEVER AND COUGH SINCE LAST NIGHT TOO Movement: Present Contractions: Denies/Absent Rupture of Membranes: Unsure Vaginal Discharge: Denies Recent Sexual Intercouse: Denies Abdominal Trauma: Not Applicable Patient Complaints: Other Additional Patient Complaints: NONE Time Provider Notified: 01/20/2017 12:20 Provider Notified: HENRY Initial Plan: ROM PLUS, BPP, NST AND VE Datetime: 01/11/2017 20:31 Labor Evaluation Frequency: NONE Monitor Mode: External Duration (sec)2399: NONE Resting Tone [place]: Relaxed Heart Rate FHR Baseline Rate: 135 Monitor Mode: External US Variability: Moderate 6-25 bpm Accelerations: 15X15 Datetime: 01/11/2017 17:40 Fall Score: 0 Fall Risk Score Definition: No Risk: No action required Datetime: 01/11/2017 17:38 EGA: 35.3 Datetime: 10/06/2016 00:05 Fall Score: 0 Fall Risk Score Definition: No Risk: No action required Datetime: 10/06/2016 00:04 EGA: 21.4
== END 2017-01-20 17:40 | disposition home or self-care (01) ==
LOC: L-D 11:57 → OBT 11:57
PROVIDERS: ATTEND Obstetrics & Gynecology
DX: O42.913 Preterm premature rupture of membranes, unspecified as to length of time between rupture and onset of labor, third trimester (principal); Z3A.36 36 weeks gestation of pregnancy
CPT/HCPCS: 76818; 84112; 96360; J3105; J7120; Z7500; G0463

== ENCOUNTER 2017-01-22 08:35 | Outpatient (CLI) | payer OTHER ==
[~2017-01-22] VITALS: Ht 167.6 cm; Wt 111.0 kg
[2017-01-22 09:23] VITALS: BP 127/59; PULSE 89; RESP 18; Ht 167.6 cm; Wt 111.0 kg
--- NOTE | 2017-01-22 10:01 | RADRPT ---
PROCEDURE: US OB biophysical profile. CLINICAL INDICATION: decreased movements TECHNIQUE: Multiple sonographic images of the pelvis were obtained. The images were reviewed on a PACS workstation. COMPARISON: US PELVIS 01/20/2017 FINDINGS: There is a single viable intrauterine gestation. Cardiac activity is present with 154 beats per min [place]. There is a vertex presentation. The placenta is posterior. There is no evidence of placental abruption. There is a decreased amount of amniotic fluid with an ROMIE = 6.6 cm. Biophysical profile: movement 2/2 tone 2/2. breathing 2/2 ROMIE 2/2 Total 10/21 RPTAT: AA . IMPRESSION: Normal biophysical profile. Oligohydramnios. . .Michele Polanco MD, Date Time Electronically viewed and signed by .Michele Polanco MD, MD on 01/22/2017 10:00 .S/
--- NOTE | 2017-01-22 10:01 | RADRPT ---
PROCEDURE: US OB biophysical profile. CLINICAL INDICATION: decreased movements TECHNIQUE: Multiple sonographic images of the pelvis were obtained. The images were reviewed on a PACS workstation. COMPARISON: US PELVIS 01/20/2017 FINDINGS: There is a single viable intrauterine gestation. Cardiac activity is present with 154 beats per min [place]. There is a vertex presentation. The placenta is posterior. There is no evidence of placental abruption. There is a decreased amount of amniotic fluid with an ROMIE = 6.6 cm. Biophysical profile: movement 2/2 tone 2/2. breathing 2/2 ROMIE 2/2 Total 10/21 RPTAT: AA . IMPRESSION: Normal biophysical profile. Oligohydramnios. . .Michele Polanco MD, Date Time Electronically viewed and signed by .Michele Polanco MD, MD on 01/22/2017 10:00 .S/
--- NOTE | 2017-01-22 10:01 | RADRPT ---
PROCEDURE: US OB biophysical profile. CLINICAL INDICATION: decreased movements TECHNIQUE: Multiple sonographic images of the pelvis were obtained. The images were reviewed on a PACS workstation. COMPARISON: US PELVIS 01/20/2017 FINDINGS: There is a single viable intrauterine gestation. Cardiac activity is present with 154 beats per min [place]. There is a vertex presentation. The placenta is posterior. There is no evidence of placental abruption. There is a decreased amount of amniotic fluid with an ROMIE = 6.6 cm. Biophysical profile: movement 2/2 tone 2/2. breathing 2/2 ROMIE 2/2 Total 10/21 RPTAT: AA . IMPRESSION: Normal biophysical profile. Oligohydramnios. . .Michele Polanco MD, Date Time Electronically viewed and signed by .Michele Polanco MD, MD on 01/22/2017 10:00 .S/
[2017-01-22] MEDS ORDERED: PREN-47 PO (10:57)
[2017-01-22] MEDS ORDERED: IPRA4AER INHALATION (10:57)
[2017-01-22] MEDS ORDERED: CALC600T24 PO (10:57)
--- NOTE | 2017-01-22 11:11 | CONS ---
Date/Time of Note Date/Time of Note DATE: 01/22/17 TIME: 11:00 Consultation Date/Type/Reason Admit Date/Time January 22, 2017 OB triage consult This patient is 31 years old 7 para 1 2 with history of 4 spontaneous vaginal delivery. Her estimated date of confinement is January which makes her 37 weeks now. She came to triage due to history of a low ROMIE and further monitoring and repeat of biophysical profile and amniotic fluid index. On examination she is a well-developed well-nourished woman with no complain of any contractions of pain. Her general vital signs are basically within normal limits with blood pressure of 127/59, pulse rate of 81, respiration 18, temperature 97.8,. Constitutional: No chills, No diaphoresis, No disoriented, No febrile, No improved, No no complaints, No other, No poor po, No requiring IVF, No requiring O2 Eyes: No discharge, No no complaints, No other, No pain, No redness, No visual change ENT: No bleeding, No congestion, No discharge, No dysphagia, No no complaints, No other, No pain, No sore throat Respiratory: No cough, No no complaints, No other, No pain, No pleuritic pain, No shortness of breath, No sputum, No wheezing Cardiovascular: No chest pain, No edema, No lightheadedness, No no complaints, No orthopenea, No other, No palpitations, No paroxysmal nocturnal dyspnea Gastrointestinal: other (She did not have any contractions for this season pelvic examination was not performed), vomiting, No blood, No constipation, No decreased appetite, No diarrhea, No flatus, No nausea, No no complaints, No pain, No passing stool Genitourinary: No bleeding, No discharge, No dysuria, No flank pain, No hematuria, No no complaints, No other Musculoskeletal: No back pain, No bone/joint pain, No neck pain, No no complaints, No other, No restricted range of motion, No swelling Skin: No bruising, No erythema, No laceration, No no complaints, No other, No pruritis, No rash, No skin lesions Neurologic: No confusion, No dizziness, No focal-weakness, No headache, No no complaints, No other, No seizure, No syncope Endocrine: No dry skin, No no complaints, No other, No polydypsia, No polyuria , No temp intolerance Additional Comments On ultrasound study the result is a single viable intrauterine gestation with cardiac activity of 154 bpm in vertex presentation. Placenta was posterior no evidence of abruption the amniotic fluid was 6.6 cm. Her biophysical profile was reported 10/21. Disposition; situation explained to the patient and she was discharged home instructed to do kick count and drink plenty of fluid and to have another earlier appointment for repeat ROMIE. Social History Smoking Status: Never smoker Exam/Review of Systems Vital Signs Vitals Vital Signs Date Time Temp Pulse Resp B/P Pulse Ox O2 Delivery O2 Flow Rate FiO2 01/22/17 09:23 97.8 89 18 127/59 Room Air VICTORIANO SHAH MD Jan 22, 2017 11:11
--- NOTE | 2017-01-22 11:33 | TRIAGE ---
OB Triage Datetime Report Generated by CPN: 01/22/2017 11:33 Datetime: 01/22/2017 08:46 Assessment Type: Triage Maternal Assessment Level of Consciousness: Fully Conscious DTR's/Clonus: DTRs 2+; No Clonus Headache: Denies Blurred Vision: No Respiratory Effort: Unlabored; Regular Rhythm; Equal Expansion Breath Sounds, Left: Clear and Equal Breath Sounds, Right: Clear and Equal Nausea/Vomiting: Denies RUQ Epigastric Pain: Denies Lower Extremities Edema: Bilateral Lower Extremities Degree: 1+ Upper Extremities Edema: None Degree: None Facial Edema: None Fall Risk Assessment History of Falling: (0) No Secondary Diagnosis: (0) No Ambulatory Aid: (0) Bedrest/Nurse Assist IV Therapy: (0) No Gait: (0) Normal/Bedrest/Immobile Mental Status: (0) Oriented to Own Ability Fall Score: 0 Fall Risk Score Definition: No Risk: No action required Datetime: 01/22/2017 08:45 Time of Arrival: 01/22/2017 08:29 EGA: 37.0 Arrived By: Ambulatory Arrived From: Office Chief Complaint: BPP _ ROMIE Movement: Decreased Contractions: Denies/Absent Rupture of Membranes: Denies Vaginal Bleeding: Normal Show Vaginal Discharge: Denies Recent Sexual Intercouse: Denies Abdominal Trauma: Not Applicable Patient Complaints: Other Additional Patient Complaints: Decreased movement Time Provider Notified: 01/22/2017 10:10 Provider Notified: Austyn Initial Plan: BPP/NST Datetime: 01/20/2017 12:01 Fall Score: 0 Fall Risk Score Definition: No Risk: No action required Datetime: 01/20/2017 11:56 EGA: 36.5 Datetime: 01/11/2017 17:40 Fall Score: 0 Fall Risk Score Definition: No Risk: No action required Datetime: 01/11/2017 17:38 EGA: 35.3 Datetime: 10/06/2016 00:05 Fall Score: 0 Fall Risk Score Definition: No Risk: No action required Datetime: 10/06/2016 00:04 EGA: 21.4
== END 2017-01-22 11:20 | disposition home or self-care (01) ==
LOC: OBT 08:35 → L-D 08:35 → OBT 11:20
PROVIDERS: ATTEND Obstetrics & Gynecology
DX: O41.93X0 Disorder of amniotic fluid and membranes, unspecified, third trimester, not applicable or unspecified (principal); Z3A.37 37 weeks gestation of pregnancy
CPT/HCPCS: 76818; Z7500; G0463

== ENCOUNTER 2017-01-27 12:09 | Outpatient (CLI) | payer OTHER ==
[~2017-01-27] VITALS: Ht 167.6 cm; Wt 110.3 kg
[~2017-01-27 12:09] MED LIST changes: -ACET-2047 PO; -ALBU8.5H3 INH; +CALC600T24 PO; -FLUO20CA38 PO; -FLUT16SP17 NASAL; +IPRA4AER INHALATION; -LORA-441 PO; -LORA1TAB PO; +PREN-47 PO; -PRENAT PO
[2017-01-27 12:25] VITALS: BP 110/67; PULSE 100; Ht 167.6 cm; Wt 110.3 kg
[2017-01-27] MEDS ORDERED: ACET500T98 PO (12:27)
--- NOTE | 2017-01-27 13:34 | RADRPT ---
PROCEDURE: OB ultrasound for biophysical profile CLINICAL INDICATION: Low ROMIE TECHNIQUE: Multiple sonographic images of the pelvis were obtained. Transabdominal views of the g ravid uterus are available for review. The images were reviewed on a PACS workstation. COMPARISON: Biophysical profile dated 01/22/2017 FINDINGS: breathing movement = 2/2 tone = 2/2 motion = 2/2 ROMIE = 2/2 ROMIE = 11.7 cm Single live intrauterine with cardiac activity of 124 bpm. position is cephal ic. The placenta is posterior. IMPRESSION: 1. Single live intrauterine gestation. 2. Biophysical profile = 10/21. 3. ROMIE = 11.7 cm. RPTAT: HH .Emily Pedroza MD, Date Time Electronically viewed and signed by .Emily Pedroza MD, on 01/27/2017 13:34 .G/
--- NOTE | 2017-01-27 13:51 | PN ---
Triage Information Date/Time January 27, 2017 Reason for visit: Here for repeat ROMIE because of a low ROMIE 4 days prior to this Weeks of Gestation 37 /Para 7 para 4 AB 2 Diabetes: none Hypertention: none Objective Vital Signs Date Time Temp Pulse Resp B/P Pulse Ox O2 Delivery O2 Flow Rate FiO2 01/27/17 12:25 98.8 100 110/67 Heart Rate: 140's Heart Rate Comments Reactive Contractions: None Exam Deferred Results/Medications Imaging Results Biophysical profile = 10/21. ROMIE = 11.7 cm. Disposition: Discharge Assessment/Plan Follow-up as outpatient YANN FERNANDEZ MD Jan 27, 2017 13:51
--- NOTE | 2017-01-27 14:06 | TRIAGE ---
OB Triage Datetime Report Generated by CPN: 01/27/2017 14:06 Datetime: 01/27/2017 13:41 Stage of : OB Triage Datetime: 01/27/2017 13:12 Labor Evaluation Frequency: 0 Monitor Mode: External Pattern: Normal: <= 5 Contractions in 10 Minutes Resting Tone [place]: Relaxed Heart Rate FHR Baseline Rate: 125 Monitor Mode: External US Variability: Moderate 6-25 bpm Accelerations: 10X10 Decelerations: None Category: Category I Pain Assessment Pain Scale: 0 Pain Presence: None/Denies Pain Type: N/A Pain Goal: 3 Pain Relief Measures: Comfort Measures Datetime: 01/27/2017 12:33 Stage of : OB Triage Datetime: 01/27/2017 12:30 Stage of : OB Triage Datetime: 01/27/2017 12:21 Stage of : OB Triage Assessment Type: Triage Maternal Assessment Level of Consciousness: Fully Conscious DTR's/Clonus: DTRs 2+; No Clonus Headache: Denies Blurred Vision: No Respiratory Effort: Unlabored; Regular Rhythm; Equal Expansion Breath Sounds, Left: Clear and Equal Breath Sounds, Right: Clear and Equal Nausea/Vomiting: Denies RUQ Epigastric Pain: Denies Facial Edema: None Temperature Route: Axillary Fall Risk Assessment History of Falling: (0) No Secondary Diagnosis: (0) No Ambulatory Aid: (0) Bedrest/Nurse Assist IV Therapy: (0) No Gait: (0) Normal/Bedrest/Immobile Mental Status: (0) Oriented to Own Ability Fall Score: 0 Fall Risk Score Definition: No Risk: No action required Labor Evaluation Frequency: 0 Monitor Mode: External Resting Tone [place]: Relaxed Heart Rate FHR Baseline Rate: 125 Monitor Mode: External US Variability: Moderate 6-25 bpm Accelerations: 10X10 Decelerations: None Category: Category I Pain Assessment Pain Scale: 6 Pain Presence: Constant Pain Type: Ache Pain Location: Head Pain Goal: 3 Pain Relief Measures: Comfort Measures Datetime: 01/27/2017 12:20 Time of Arrival: 01/27/2017 12:04 EGA: 37.5 Arrived By: Ambulatory Arrived From: Home Chief Complaint: FOLLOW UP NST/BPP LOW ROMIE, DENIES BLEEDING OR LEAKING. OCCAS UC'S Movement: Present Contractions: Occasional Rupture of Membranes: Denies Vaginal Bleeding: None Vaginal Discharge: Denies Recent Sexual Intercouse: Denies Abdominal Trauma: Not Applicable Patient Complaints: Headache Time Provider Notified: 01/27/2017 12:33 Provider Notified: rosie Initial Plan: MONITOR, BPP/ROMIE, NST Datetime: 01/22/2017 09:44 Comments: NST DONE Datetime: 01/22/2017 09:30 Monitor Mode: External Resting Tone [place]: Relaxed Heart Rate FHR Baseline Rate: 130 Monitor Mode: External US FHR Baseline Changes: No Baseline Change Variability: Moderate 6-25 bpm Accelerations: 15X15 Decelerations: None Category: Category I Pain Presence: None/Denies Datetime: 01/22/2017 08:46 Fall Score: 0 Fall Risk Score Definition: No Risk: No action required Datetime: 01/22/2017 08:45 EGA: 37.0 Datetime: 01/22/2017 08:35 Stage of : OB Triage Datetime: 01/20/2017 12:01 Fall Score: 0 Fall Risk Score Definition: No Risk: No action required Datetime: 01/20/2017 11:56 EGA: 36.5 Datetime: 01/11/2017 17:40 Fall Score: 0 Fall Risk Score Definition: No Risk: No action required Datetime: 01/11/2017 17:38 EGA: 35.3 Datetime: 10/06/2016 00:05 Fall Score: 0 Fall Risk Score Definition: No Risk: No action required Datetime: 10/06/2016 00:04 EGA: 21.4
== END 2017-01-27 13:55 | disposition home or self-care (01) ==
LOC: L-D 12:09 → OBT 12:09
PROVIDERS: ATTEND Obstetrics & Gynecology
DX: O41.03X0 Oligohydramnios, third trimester, not applicable or unspecified (principal); Z3A.37 37 weeks gestation of pregnancy
CPT/HCPCS: 76818; Z7500; G0463

== ENCOUNTER 2017-01-30 13:41 | Inpatient (IN) | payer OTHER ==
[~2017-01-30] VITALS: Ht 167.6 cm; Wt 111.2 kg
[~2017-01-30 13:41] MED LIST changes: +ACET500T98 PO
[2017-01-30 14:18] VITALS: Ht 167.6 cm; Wt 111.2 kg
[2017-01-30 14:26] VITALS: BP 127/77; PULSE 92; RESP 20
--- NOTE | 2017-01-30 15:03 | RADRPT ---
PROCEDURE: US OB biophysical profile. CLINICAL INDICATION: decreased movements, low ROMIE TECHNIQUE: Multiple sonographic images of the pelvis were obtained. The images were reviewed on a PACS workstation. COMPARISON: US PELVIS 01/27/2017 FINDINGS: There is a single viable intrauterine gestation. Cardiac activity is present with 154 beats per min [place]. There is a vertex presentation. The placenta is posterior. There is no evidence of placental abruption. There is a normal amount of amniotic fluid with an ROMIE = 11.4 cm. Biophysical profile: movement 2/2 tone 2/2. breathing 2/2 ROMIE 2/2 Total 10/21 RPTAT: AA . IMPRESSION: Normal biophysical profile. . .Michele Polanco MD, MD Date Time Electronically viewed and signed by .Michele Polanco MD, MD on 01/30/2017 15:03 .S/
--- NOTE | 2017-01-30 15:11 | RADRPT ---
PROCEDURE: US OB. CLINICAL INDICATION: Uncertain size and dates. TECHNIQUE: Multiple sonographic images of the uterus were obtained. The images were revi ewed on a PACS workstation. COMPARISON: No prior studies are available for comparison. FINDINGS: There is a single live intrauterine gestation. heart rate is 136 beats per minute. Measurements were made in order to determine age. The results are as follows: BPD = 8.79 cm. HC = 31.65 cm. AC = 32.35 cm. FL = 6.87 cm. Estimated weight is 2788 +/- 418 grams. LMP growth percentile is 13 %. Menstrual age by ultrasound dates is 35 weeks 5 days. The estimated date of delivery is 03/01/2017. Position is cephalic and placenta is posterior grade II. There is no evidence for an abruption or pl acenta previa. IMPRESSION: 1. Single live intrauterine gestation of 35 weeks 5 days menstrual age by ultrasound dates. 2. The estimated date of delivery is 03/01/2017. RPTAT: QQ .Mack Melara MD, Date Time Electronically viewed and signed by .Mack Melara MD, on 01/30/2017 15:10 .R/
[2017-01-30] MEDS ORDERED: IBUPROFEN 600 MG TAB PO PRN (16:30)
[2017-01-30] MEDS ORDERED: OXYTOCIN 30 UNITS/LR 500 ML IV SCH ×2 (16:30)
[2017-01-30] MEDS ORDERED: LIDOCAINE 1% (MPF) 30 ML INJ INJ PRN (16:30)
[2017-01-30] MEDS ORDERED: METHYLERGONOVINE 0.2 MG INJ IM PRN (16:30)
[2017-01-30] MEDS ORDERED: OXYTOCIN 30 UNITS/LR 500 ML IV PRN (16:30)
[2017-01-30] MEDS ORDERED: AMPICILLIN 2 GM/NS (PMX) 100 ML IV ONE (16:30)
[2017-01-30] MEDS ORDERED: BUTORPHANOL 2 MG INJ IV PRN (16:30)
[2017-01-30] MEDS ORDERED: CARBOPROST 250 MCG INJ IM PRN (16:30)
[2017-01-30] MEDS ORDERED: MINERAL OIL LIGHT 10 ML VIAL TOP PRN (16:30)
[2017-01-30] MEDS ORDERED: MISOPROSTOL 200 MCG TAB PR PRN (16:30)
[2017-01-30] MEDS: LACTATED RINGER'S 1,000 ML IV SCH ×2 (16:51→23:40)
[2017-01-30] MEDS ORDERED: LACTATED RINGER'S 1,000 ML IV PRN (17:00)
[2017-01-30 17:15] LABS: BASOPHIL # 0.1 10^3/ul (0.0-0.1); BASOPHILS % 0.5 % (0.0-2.0); EOSINOPHILS # 0.1 10^3/ul (0.0-0.5); HEMATOCRIT 38.3 % (37.0-47.0); HEMOGLOBIN 12.9 g/dl (12.0-16.0); LYMPHOCYTES # 2.6 10^3/ul (0.8-2.9); LYMPHOCYTES % 20.7 % (15.0-51.0); MEAN CORPUSCULAR HEMOGLOBIN 27.1 pg (29.0-33.0); MEAN CORPUSCULAR HGB CONC 33.7 g/dl (32.0-37.0); MEAN CORPUSCULAR VOLUME 80.5 fl (82.0-101.0); MEAN PLATELET VOLUME 11.2 fl (7.4-10.4); MONOCYTE # 0.7 10^3/ul (0.3-0.9); MONOCYTES % 5.9 % (0.0-11.0); NEUTROPHIL # 8.9 10^3/ul (1.6-7.5); NEUTROPHILS % 70.8 % (39.0-77.0); PLATELET COUNT 285 10^3/UL (140-415); RED BLOOD COUNT 4.76 10^6/ul (4.20-5.40); RED CELL DISTRIBUTION WIDTH 14.2 % (11.5-14.5); WHITE BLOOD COUNT 12.6 10^3/ul (4.8-10.8)
[2017-01-30 17:35] LABS: INR 1.04; PROTIME 13.6 Sec (12.2-14.2); PT RATIO 1.1
[2017-01-30 17:36] LABS: PARTIAL THROMBOPLASTIN TIME 28.2 Sec (25.0-35.0)
--- NOTE | 2017-01-30 19:33 | HP ---
Date/Time of Note Date/Time of Note DATE: 01/30/17 TIME: 19:32 OB - History Hx of Present Chief Complaint: contractions : 7 Para: 4 Care: Good Care Obstetrical Complications: None Medical Complications: None Past Family/Social History * Past Medical, Surgical, Family and Obstetric Histories reviewed from chart. OB Admission Exam Vital Signs Vital Signs Vital Signs Date Time Temp Pulse Resp B/P Pulse Ox O2 Delivery O2 Flow Rate FiO2 01/30/17 14:26 98.2 92 20 127/77 Room Air Physical Exam HEENT: WNL Heart: Rhythm Normal Lungs: Clear Abdomen: WNL Extremities: Normal Cervical Dilatation: 5cm Membranes: Intact Accelerations: Accelerations Present Decelerations: No Decelerations Varibility: Moderate Contractions on Admission: < 5 Minutes Apart Last 72 hours Lab Results CBC & BMP 01/30/17 16:30 OB Assessment/Plan Reason for admission: active labor Plan: Expectant Management JEANNIE WEBB Jan 30, 2017 19:33
[2017-01-30] MEDS: AMPICILLIN 1 GM/NS (PMX) 50 ML IV SCH (21:04)
[2017-01-30] MEDS ORDERED: AMPICILLIN 1 GM/NS (PMX) 50 ML IV SCH (22:30)
[2017-01-31] MEDS ORDERED: OXYTOCIN 30 UNITS/LR 500 ML IV SCH ×2 (00:30→07:35)
[2017-01-31] MEDS: AMPICILLIN 1 GM/NS (PMX) 50 ML IV SCH ×3 (01:06→09:00)
[2017-01-31] MEDS ORDERED: FENTAnyl 2MCG/ML-ROPIV 0.2% 100 ML ONE (01:44)
[2017-01-31] MEDS ORDERED: NALOXONE (0.4 MG/ML) INJ IV PRN (03:00)
[2017-01-31] MEDS ORDERED: FENTAnyl 2MCG/ML-ROPIV 0.2% 100 ML BAG EPI SCH (03:00)
[2017-01-31] MEDS: LACTATED RINGER'S 1,000 ML IV SCH (06:40)
--- NOTE | 2017-01-31 07:35 | LDN ---
Date/Time of Note Date/Time of Note DATE: 01/31/17 TIME: 07:25 Delivery Summary January Spontaneous vaginal delivery Weeks of Gestation 38 2/7 week Placenta Delivered: Spontaneously Meconium: none Episiotomy: No Anesthesia type: Epidural Estimated blood loss: 150 Sponge & Needle done & correct: Yes All needle counts correct: Yes Any foreign bodies felt in the: No Problems: Delivery Information Sex Infant Sex: male Apgars 1 Minute: 9 5 Minute: 9 Suctioning Nose & mouth suctioned at mandeep: Yes Umbilical Cord Umbilical cord with: 3 Vessels Cord presentations: nuchal cord Nuchal cord present X: 1 Cord Blood was obtained: Yes Mother & Baby Disposition Disposition Laboratory Tests Test 01/30/17 16:30 White Blood Count 12.610^3/ul Red Blood Count 4.7610^6/ul Hemoglobin 12.9g/dl Hematocrit 38.3% Mean Corpuscular Volume 80.5fl Mean Corpuscular Hemoglobin 27.1pg Mean Corpuscular Hemoglobin Concent 33.7g/dl Red Cell Distribution Width 14.2% Platelet Count 12014^3/UL Mean Platelet Volume 11.2fl Neutrophils % 70.8% Lymphocytes % 20.7% Monocytes % 5.9% Eosinophils % 1.0% Basophils % 0.5% Nucleated Red Blood Cells % 0.0/100WBC Neutrophils # 8.910^3/ul Lymphocytes # 2.610^3/ul Monocytes # 0.710^3/ul Eosinophils # 0.110^3/ul Basophils # 0.110^3/ul Nucleated Red Blood Cells # 0.010^3/ul Prothrombin Time 13.6Sec Prothrombin Time Ratio 1.1 INR International Normalized Ratio 1.04 Activated Partial Thromboplast Time 28.2Sec Rapid Plasma Reagin NONREACTIVE Hepatitis B Surface Antigen NEGATIVE Current Medications Medications (Trade) Dose Ordered Sig/Marvel Route PRN Reason Start Time Stop Time Status Last Admin Dose Admin Lactated Ringer's 1,000 ml @ 125 mls/hr Q8H IV 01/30/17 16:24 01/31/17 06:40 Ampicillin 100 ml @ 100 mls/hr ONCE ONCE IV 01/30/17 16:30 01/30/17 17:29 DC 01/30/17 16:51 Ampicillin (Ampicillin 1 Gm/ NS (Pmx)) 50 ml @ 100 mls/hr Q4H IV 01/30/17 22:30 01/30/17 22:30 DC Butorphanol Tartrate (Stadol) 2 mg Q2H PRN IV PAIN 01/30/17 16:30 Lidocaine 30 ml 30 ml ONCE PRN INJ EPISIOTOMY/TEARING 01/30/17 16:30 Oxytocin/Lactated Ringer's 500 ml @ 125 mls/hr ONCE -MAY REPEAT X1 IV 01/30/17 16:30 Oxytocin/Lactated Ringer's 500 ml @ 125 mls/hr ONCE IV 01/30/17 16:30 Ibuprofen (Motrin) 600 mg ONCE PRN PO Mild Pain (Pain Score 1-3) 01/30/17 16:30 Acetaminophen/ Hydrocodone Bitart 2 tab 2 tab ONCE PRN PO Moderate to Severe Pain (4-10) 01/30/17 16:30 Lactated Ringer's 1,000 ml @ 2,000 mls/hr Q30M PRN IV PRE-EPIDURAL BOLUS 01/30/17 17:00 01/31/17 02:11 Oxytocin/Lactated Ringer's 500 ml @ 0 mls/hr ONCE PRN IV For Hemorrhage Management 01/30/17 16:30 Methylergonovine Maleate (Methergine) 0.2 mg ONCE PRN IM VAGINAL BLEEDING 01/30/17 16:30 Carboprost Tromethamine (Hemabate) 250 mcg ONCE PRN IM VAGINAL BLEEDING 01/30/17 16:30 Misoprostol (Cytotec) 1,000 mcg ONCE PRN [place] VAGINAL BLEEDING 01/30/17 16:30 Mineral Oil PRN PRN TOP LUBRICANT 01/30/17 16:30 Ampicillin 50 ml @ 100 mls/hr Q4H IV 01/30/17 21:00 01/31/17 04:40 Oxytocin/Lactated Ringer's 500 ml @ 0 mls/hr Q0M IV 01/31/17 00:30 01/31/17 00:29 Fentanyl/ Ropivacaine 100 ml @ ud STK-MED ONCE .ROUTE 01/31/17 01:44 01/31/17 01:45 DC Naloxone HCl (Narcan) 0.2 mg Q2M PRN IV FOR RESP RATE 8 OR LESS 01/31/17 03:00 Fentanyl/ Ropivacaine 100 ml EPIDURAL (PCEA) EPI 01/31/17 03:00 Mom & Baby to Maternity; Good: Yes VICTORIANO SHAH MD Jan 31, 2017 07:35
[2017-01-31] MEDS ORDERED: IBUPROFEN 600 MG TAB PO PRN (08:00)
[2017-01-31] MEDS ORDERED: SENNA/DOCUSATE NA (8.6MG/50MG) TAB PO PRN (08:00)
[2017-01-31] MEDS ORDERED: MISOPROSTOL 200 MCG TAB PR PRN ×2 (08:00→11:30)
[2017-01-31] MEDS ORDERED: OXYCODONE/ASPIRIN (4.88/325) TAB PO PRN ×2 (08:00)
[2017-01-31] MEDS ORDERED: OXYTOCIN 30 UNITS/LR 500 ML IV PRN ×2 (08:00→11:30)
[2017-01-31] MEDS ORDERED: ACETAMINOPHEN 500 MG TAB PO PRN ×2 (08:00→11:30)
[2017-01-31] MEDS ORDERED: METHYLERGONOVINE 0.2 MG INJ IM PRN ×2 (08:00→11:30)
[2017-01-31] MEDS ORDERED: WITCH HAZEL/GLYCERIN PAD PR PRN (08:00)
[2017-01-31] MEDS ORDERED: LANOLIN 7 GM TUBE TOP PRN (08:00)
[2017-01-31] MEDS ORDERED: CARBOPROST 250 MCG INJ IM PRN ×2 (08:00→11:30)
[2017-01-31] MEDS ORDERED: BENZOCAINE 20% 56 ML SPRAY TOP PRN (08:00)
[2017-01-31] MEDS ORDERED: DIBUCAINE 1% 30 GM OINT PR PRN (08:00)
[2017-01-31 09:50] VITALS: BP 112/58; PULSE 75; RESP 19
[2017-01-31] MEDS ORDERED: LACTATED RINGER'S 1,000 ML IV* SCH (11:19)
[2017-01-31] MEDS ORDERED: OXYTOCIN 30 UNITS/LR 500 ML IV ONE (11:46)
[2017-01-31] MEDS: OXYTOCIN 30 UNITS/LR 500 ML IV SCH ×2 (12:05→15:19)
[2017-01-31] MEDS: IBUPROFEN 600 MG TAB PO PRN ×2 (12:06→23:50)
[2017-01-31 15:38] VITALS: BP 112/55; PULSE 73; RESP 19
[2017-01-31] MEDS: HYDROCODONE/APAP (5/325) TAB PO PRN (15:38)
[2017-01-31 19:35] VITALS: BP 107/52; PULSE 71; RESP 18
[2017-02-01] VITALS: BP 112/60; PULSE 69; RESP 17
[2017-02-01 04:10] VITALS: BP 90/53; PULSE 62; RESP 17
[2017-02-01] MEDS: IBUPROFEN 600 MG TAB PO PRN ×3 (05:31→23:13)
[2017-02-01 07:20] VITALS: BP 103/64; PULSE 68; RESP 19
[2017-02-01 08:59] LABS: BASOPHIL # 0.1 10^3/ul (0.0-0.1); BASOPHILS % 0.9 % (0.0-2.0); EOSINOPHILS # 0.2 10^3/ul (0.0-0.5); EOSINOPHILS % 2.3 % (0.0-7.0); HEMATOCRIT 33.1 % (37.0-47.0); HEMOGLOBIN 11.2 g/dl (12.0-16.0); LYMPHOCYTES # 2.4 10^3/ul (0.8-2.9); LYMPHOCYTES % 26.7 % (15.0-51.0); MEAN CORPUSCULAR HEMOGLOBIN 27.4 pg (29.0-33.0); MEAN CORPUSCULAR HGB CONC 33.8 g/dl (32.0-37.0); MEAN CORPUSCULAR VOLUME 80.9 fl (82.0-101.0); MEAN PLATELET VOLUME 11.2 fl (7.4-10.4); MONOCYTE # 0.6 10^3/ul (0.3-0.9); MONOCYTES % 6.7 % (0.0-11.0); NEUTROPHIL # 5.7 10^3/ul (1.6-7.5); NEUTROPHILS % 62.3 % (39.0-77.0); PLATELET COUNT 249 10^3/UL (140-415); RED BLOOD COUNT 4.09 10^6/ul (4.20-5.40); RED CELL DISTRIBUTION WIDTH 14.5 % (11.5-14.5); WHITE BLOOD COUNT 9.1 10^3/ul (4.8-10.8)
--- NOTE | 2017-02-01 15:30 | DS ---
Date/Time of Note Date/Time of Note Home today or next day DATE: 02/01/17 TIME: 15:28 Obstetrical Discharge Record Final Diagnosis Final Diagnosis: Term delivered Other Final Diagnosis Status post vaginal delivery Vaginal Delivery Obstetrical Delivery: Spontaneous Condition on Discharge Physical Assessment Last Vitals: See nurse's notes Voiding: Yes Bowel Movement: Yes Breast: Soft, non-tender, Filling Fundus: Firm Abdomen and Incision: Abdomen is soft bowel sounds present Fundus is firm at the umbilicus Episiotomy: Not applicable Calf Tenderness: No Patient Condition: Good YANN FERNANDEZ MD Feb 01, 2017 15:30
--- NOTE | 2017-02-01 15:31 | PD.PPDC ---
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
[2017-02-01] MEDS ORDERED: IBUP-1542 PO (15:33)
[2017-02-01 15:54] VITALS: BP 114/63; PULSE 63; RESP 19
[2017-02-01] MEDS: HYDROCODONE/APAP (5/325) TAB PO PRN (15:54)
[2017-02-01 20:00] VITALS: BP 114/69; PULSE 64; RESP 18
[2017-02-02 04:00] VITALS: BP 106/62; PULSE 78; RESP 18
[2017-02-02] MEDS: IBUPROFEN 600 MG TAB PO PRN ×2 (05:18→10:33)
[2017-02-02 08:40] VITALS: BP 119/74; PULSE 81; RESP 16
[2017-02-02] MEDS ORDERED: DIPHTH/TET/ACEL PERTUSS (ADULT) 0.5 ML VIAL IM* ONE (09:00)
== END 2017-02-02 13:15 | disposition home or self-care (01) | DRG 775 ==
LOC: L-D 13:41 → OBT 13:41 → L-D 16:15 → PP1 01-31 10:07
PROVIDERS: ADMIT Obstetrics & Gynecology; ATTEND Obstetrics & Gynecology
PROC: 10E0XZZ Delivery of Products of Conception, External Approach (ICD-10-PCS; principal; 2017-01-31)
DX: O99.52 Diseases of the respiratory system complicating childbirth (principal); J45.909 Unspecified asthma, uncomplicated; O69.81X0 Labor and delivery complicated by cord around neck, without compression, not applicable or unspecified; Z37.0 Single live birth; Z3A.38 38 weeks gestation of pregnancy
CPT/HCPCS: 62319; 76815; 76818; 85025; 85610; 85730; 86592; 86850; 86900; 86901; 87340; 90715; 99464; G0463; J0290; J2590; J3010; J7120

== ENCOUNTER 2018-12-07 04:36 | Emergency (ER) | payer OTHER ==
[~2018-12-07] VITALS: Ht 160 cm; Wt 89.0 kg
[~2018-12-07 04:36] MED LIST changes: +IBUP-1542 PO; +NITR-58 PO
[2018-12-07 04:47] VITALS: BP 127/79; PULSE 79; RESP 20; Ht 160 cm; Wt 89.0 kg
[2018-12-07] MEDS ORDERED: LORAZEPAM 1 MG TAB PO ONE (05:00)
[2018-12-07] MEDS ORDERED: OLANZAPINE 5 MG TAB PO ONE (05:16)
[2018-12-07] MEDS ORDERED: RISPERIDONE 1 MG TAB PO SCH (09:00)
== END 2018-12-07 14:05 ==
LOC: E/R 04:36
DX: F19.151 Other psychoactive substance abuse with psychoactive substance-induced psychotic disorder with hallucinations (principal); D64.9 Anemia, unspecified; F17.210 Nicotine dependence, cigarettes, uncomplicated; Z73.6 Limitation of activities due to disability
CPT/HCPCS: 36415; 80053; 80307; 81001; 81025; 85025; Z7502; Z7610; 81003; 99285